=== PATIENT | male | born 1945 | race Caucasian/White ===

== ENCOUNTER 2022-01-16 12:36 | Inpatient (IN) | payer OTHER, SELFPAY ==
[2022-01-16] VITALS (29 sets, daily range): BP systolic 130–232; BP diastolic 89–143; PULSE 82–103; RESP 18–29; TEMP 36.2–36.3; O2SAT 93–98; BMI 38.0
--- NOTE | 2022-01-16 13:14 | DI.RAD.S_ITS ---
PROCEDURE: XR CHEST 2V INDICATIONS: shortness of breath TECHNIQUE: 2 views of the chest were acquired. COMPARISON: [facility], , CHEST 1 VIEW, 08/09/2016, 15:31. FINDINGS: Surgical changes and devices: Median sternotomy wires are present and appear intact. Lungs and pleura: Diffuse interstitial prominence. Small bilateral pleural effusions. Suggestion of mild pulmonary vascular congestion. No focal consolidation. No pneumothorax. Mediastinum: Mediastinal contours are stable. Heart size is enlarged. Bones and chest wall: No suspicious bony abnormalities. Soft tissues appear unremarkable. IMPRESSION: Cardiomegaly with findings compatible with pulmonary edema/CHF. A concurrent infectious/inflammatory process not excluded if clinically appropriate. No focal consolidation seen. Dictated by: Madi Palumbo M.D. on 01/16/2022 at 13:58 Approved by: Madi Palumbo M.D. on 01/16/2022 at 13:59
[2022-01-16 13:28] LABS: Add Manual Diff / Slide Review NO; Basophils Absolute Auto 100 /uL (0-100); Eosinophils Absolute Auto 100 /uL (0-450); Eosinophils Percent Auto 1.2 % (2-4); Hematocrit 38.4 % (41-53); Hemoglobin 12.7 g/dL (13.5-17.5); Lymphocytes Absolute Auto 700 /uL (1100-4500); Lymphocytes Percent Auto 7.9 % (25-40); Mean Corpuscular HGB Conc 33.2 % (30-36); Mean Corpuscular Hemoglobin 26.3 PG (26-34); Mean Corpuscular Volume 79.1 fL (80-100); Monocytes Absolute Auto 700 /uL (0-900); Monocytes Percent Auto 8.8 % (3-14); Neutrophils Absolute Auto 6700 /uL (1500-7000); Neutrophils Percent Auto 81.1 % (50-75); Platelet Count 187 X10^3/uL (150-400); Red Blood Cell Count 4.85 X10^6/uL (4.5-5.9); White Blood Cell Count 8.3 X10^3/uL (4.5-11.0)
[2022-01-16 13:30] LABS: COVID19 -Nasal RAPID Negative (Negative)
[2022-01-16 13:36] LABS: Lactate (Lactic Acid) 1.6 mmol/L (0.7-2.1)
[2022-01-16 13:38] LABS: Alanine Aminotransferase 17 IU/L (<50); Albumin 4.4 g/dL (3.5-5.0); Alkaline Phosphatase 141 U/L (38-126); Aspartate Aminotransferase 26 IU/L (17-59); BUN Creatinine Ratio 19.8 (6-22); Bilirubin Total 1.2 mg/dL (0.2-1.3); Blood Urea Nitrogen 40 mg/dL (9-20); Calcium 9.8 mg/dL (8.4-10.2); Carbon Dioxide 23 mmol/L (22-32); Chloride 98 mmol/L (98-107); Estimated Glomerular Filt Rate 33 mL/min (>60); Globulin 4.2 g/dL (1.7-4.1); Glucose 130 mg/dL (80-110); HEMOLYSIS < 15 (0-50); Sodium 132 mmol/L (137-145); Total Protein 8.6 g/dL (6.3-8.2)
[2022-01-16 13:39] LABS: Potassium 5.6 mmol/L (3.4-5.1)
--- NOTE | 2022-01-16 13:44 | ED.SOB ---
HPI - SOB/Dyspnea General Chief Complaint: Shortness of Breath/Dyspnea Stated Complaint: Asthma flare up, SOB Time Seen by Provider: 01/16/22 13:43 Source: patient and family Mode of arrival: Wheelchair Limitations: no limitations History of Present Illness HPI Narrative: This is a 76-year-old male with history of aortic valve replacement and 2 vessel CABG 2014, asthma, chronic kidney disease, hypothyroidism. Patient states he presents with increasing shortness of breath he is had 2 years of dyspnea but states it has been worsening progressively over the last 3 months the last 3 weeks and significantly over the last 3 days, progressive swelling of his lower extremities. Patient has had multiple visits with primary care and at the local walk-in clinic they felt it was likely CHF exacerbation. Patient was on Lasix 40 mg daily he states this made the swelling in his legs worse and he stopped taking it 3 days ago and the swelling got better. Patient denies any chest pain or pressure. He states his dyspnea is exertional if he is at rest he does not have any issues. He does admit to some upper respiratory congestion which is daily and not new or changed. He does take a daily Claritin and use Nasacort. Patient denies nausea or vomiting, no diaphoresis, no changes to bowel movements, no black or bloody stools. No dysuria urgency or frequency. Patient noted that he had minimal increase in output with Lasix or delayed by several hours. Patient states he has many medication allergies and these were reviewed, quit smoking tobacco 50 years ago, last alcoholic drink was 30 years ago denies any illicit. Dr. Bonner is his PCP and Dr. Hernandez is his international relations professor. Related Data Home Medications Medication Instructions Recorded Confirmed albuterol sulfate 90 mcg/actuation 2 puff INH ##0 08/09/16 08/30/21 aerosol inhaler (Ventolin HFA) fluticasone furoate 100 1 puff INH ##0 08/09/16 08/30/21 mcg-vilanterol 25 mcg/dose inhalation powder (Breo Ellipta) aspirin 81 mg tablet,delayed 81 mg PO QDAY ##0 07/17/17 08/30/21 release furosemide 40 mg tablet 40 mg Q DAY PRN ##0 07/17/17 08/30/21 levothyroxine 100 mcg tablet 100 mcg PO QAM ##0 07/17/17 08/30/21 amlodipine 10 mg tablet 10 mg PO DAILY 08/30/21 08/30/21 lisinopril 40 mg tablet 40 mg PO DAILY 08/30/21 08/30/21 omeprazole 20 mg capsule,delayed 20 mg PO DAILY 08/30/21 08/30/21 release tamsulosin 0.4 mg capsule 0.4 mg PO DAILY 08/30/21 08/30/21 Previous Rx's Medication Instructions Recorded prednisone 50 mg tablet 50 mg [facility] tabs 07/17/17 lidocaine 4 % topical patch 1 patch topical BID PRN pain #10 ea 01/05/22 (AsperFlex (lidocaine)) loratadine 5 mg-pseudoephedrine ER 1 tab PO ONCE PRN nasal congestion 01/08/22 120 mg tablet,extended #14 tabs release,12hr (Claritin-D 12 Hour) prednisone 20 mg tablet 40 mg PO DAILY #10 tabs 01/08/22 Allergies Allergy/AdvReac Type Severity Reaction Status Date / Time lisinopril [LISINOPRIL] Allergy Unknown Swelling Verified 01/16/22 13:12 of Lip/Tongue/Throat simvastatin [SIMVASTATIN] Allergy Unknown Verified 01/16/22 13:12 guanfacine Allergy Verified 01/16/22 13:12 valsartan [VALSARTAN] AdvReac Intermediate SOB, ST, Verified 01/16/22 13:12 dry cough furosemide [From LASIX] AdvReac Mild LEG CRAMPS Verified 01/16/22 13:12 diltiazem [From CARDIZEM] AdvReac Unknown Verified 01/16/22 13:12 hydralazine [HYDRALAZINE] AdvReac Unknown leg Verified 01/16/22 13:12 cramps, extreme gas carvedilol AdvReac Verified 01/16/22 13:12 losartan AdvReac Verified 01/16/22 13:12 spironolactone AdvReac Verified 01/16/22 13:12 Review of Systems Review of Systems ROS Unobtainable: All systems reviewed & are unremarkable except as noted in HPI and below Patient History Social History Smoking Status: Former smoker Smoking Status: Former smoker Exam Narrative Exam Narrative: GENERAL: Alert and oriented x three, elderly male in moderate distress. HEENT: Head normocephalic, atraumatic, EOMI, pupils reactive, face symmetric, moist mucous membranes NECK: Supple, full range of motion CARDIOVASCULAR: Regular rate and rhythm without murmurs, rubs or gallops. Positive for bilateral lower extremity swelling. RESPIRATORY: Breath sounds equal bilaterally, no wheezes rales or rhonchi. Mild tachypnea speaks in full sentences. ABDOMEN: Soft, nontender. Normoactive bowel sounds all 4 quadrants. No guarding or rebound, rigidity, no mass : No CVA tenderness EXTREMITIES: Normal range of motion, pitting edema bilateral lower extremities up through the thighs. Neurovascularly intact NEUROLOGICAL: Cranial nerves II through XII grossly intact. Moving all extremities SKIN: Warm, dry, no petechiae, no rashes or lesions. Initial Vital Signs Initial Vital Signs: Vital Signs Temperature 97.1 F L 01/16/22 12:57 Pulse Rate 96 H 01/16/22 12:57 Respiratory Rate 24 01/16/22 12:57 Blood Pressure 175/95 H 01/16/22 12:57 Pulse Oximetry 97 01/16/22 12:57 Oxygen Delivery Method 01/16/22 12:57 Course Orders Ordered: ED Orders 01/16/22 12:55 COVID19 -Nasal RAPID/Pre-Proc Stat 01/16/22 13:14 XR chest 2V Stat Measure peak expiratory flow ONCE RT Consult Eval and Treat Now 01/16/22 13:17 Complete Blood Count AUTO DIFF Stat Comprehensive Metabolic Panel Stat Lactate (Lactic Acid) Stat NT-proBNP (BNP-Adult 18+) Stat Troponin & CK Cardiac Panel Stat 01/16/22 16:42 EKG-12 Lead Stat 01/16/22 16:49 Trop I [Troponin I] Stat Discontinued Medications Furosemide (Furosemide 100 Mg/10 Ml Vial) 80 mg IV NOW ONE Stop: 01/16/22 18:40 Last Admin: 01/16/22 18:52 Dose: 80 mg Documented By: RL Nitroglycerin (Nitroglycerin 0.4 Mg Sl Tab) 0.4 mg SL NOW ONE Stop: 01/16/22 17:25 Last Admin: 01/16/22 17:38 Dose: 0.4 mg Documented By: RL Nitroglycerin (Nitroglycerin Oint 1 Inch/Gm Oint...G.) 1 inch TOP NOW ONE Stop: 01/16/22 18:40 Last Admin: 01/16/22 18:52 Dose: 1 inch Documented By: RL Consultations Consultation #1: Dr. Cisneros, cardiology [place] (covering for Dr. Hernandez): Recommends observation, echo, diuresis and low-dose beta-ayush. Patient had an echo in 2020 with an EF of 50% but global hypokinesis. If patient's troponins trend out without issue can follow up outpatient with Cardiology for further outpatient ischemic workup. Discussed that patient very reluctant to continue Lasix and has multiple medication allergies. He suggest Toprol daily at this time patient has allergy to carvedilol but does not appear to have an allergy to metoprolol. Time: 18:12 Consultation #2: Dr. Álvarez, hospitalist. Kindly accepts for CHF exacerbation patient is not hypoxic but has hypertension quite significantly had minimal improvement with nitro sublingual, patient has lab, clinical evaluation and imaging consistent with CHF. Patient is quite resistant to the idea that this is a CHF flare and has multiple adverse events he describes is medication allergies that make medication management little bit difficult. We did discuss recommendations and patient's prior outpatient workup with Cardiology. Time: 18:42 Vital Signs Vital signs: Vital Signs - 8 hr 01/16/22 12:57 01/16/22 12:59 01/16/22 13:00 Temperature 97.1 F L Pulse Rate 96 H 83 Respiratory Rate 24 28 H Blood Pressure 175/95 H 175/95 H Pulse Oximetry 97 98 Oxygen Delivery Method Room Air 01/16/22 13:00 01/16/22 13:30 01/16/22 13:31 Temperature Pulse Rate 103 H 98 H Respiratory Rate 27 H 27 H Blood Pressure 130/90 Pulse Oximetry 97 95 Oxygen Delivery Method 01/16/22 13:31 01/16/22 14:00 01/16/22 14:30 Temperature Pulse Rate 99 H 100 H 100 H Respiratory Rate 21 22 21 Blood Pressure Pulse Oximetry 96 98 95 Oxygen Delivery Method 01/16/22 15:00 01/16/22 15:26 01/16/22 15:26 Temperature Pulse Rate 99 H 89 Respiratory Rate 18 23 Blood Pressure 187/111 H Pulse Oximetry 96 97 Oxygen Delivery Method 01/16/22 17:38 01/16/22 15:30 01/16/22 15:31 Temperature Pulse Rate 99 H 96 H Respiratory Rate 20 Blood Pressure 218/111 H 171/93 H Pulse Oximetry 96 Oxygen Delivery Method 01/16/22 15:31 01/16/22 16:00 01/16/22 16:00 Temperature Pulse Rate 96 H 88 Respiratory Rate 20 20 Blood Pressure 172/102 H Pulse Oximetry 97 97 Oxygen Delivery Method 01/16/22 16:30 01/16/22 16:30 01/16/22 17:00 Temperature Pulse Rate 95 H Respiratory Rate 20 Blood Pressure 180/143 H 208/100 H Pulse Oximetry 97 Oxygen Delivery Method 01/16/22 17:00 01/16/22 17:38 01/16/22 17:39 Temperature Pulse Rate 84 92 H Respiratory Rate 23 19 Blood Pressure 218/111 H Pulse Oximetry 96 96 Oxygen Delivery Method 01/16/22 17:39 01/16/22 17:50 01/16/22 17:50 Temperature Pulse Rate 100 H 83 Respiratory Rate 18 20 Blood Pressure 195/104 H Pulse Oximetry 96 93 Oxygen Delivery Method 01/16/22 18:00 01/16/22 18:00 01/16/22 18:10 Temperature Pulse Rate 97 H Respiratory Rate 19 Blood Pressure 213/100 H 203/131 H Pulse Oximetry 94 Oxygen Delivery Method 01/16/22 18:10 Temperature Pulse Rate 90 Respiratory Rate 18 Blood Pressure Pulse Oximetry 94 Oxygen Delivery Method MDM - SOB/Dyspnea Lab Data Result diagrams: 01/16/22 13:17 01/16/22 13:17 Labs: Lab Results 01/16/22 01/16/22 01/16/22 Range/Units 12:55 13:17 13:17 WBC 8.3 (4.5-11.0) X10^3/uL RBC 4.85 (4.5-5.9) X10^6/uL Hgb 12.7 L (13.5-17.5) g/dL Hct 38.4 L (41-53) % MCV 79.1 L (80-100) fL MCH 26.3 (26-34) PG MCHC 33.2 (30-36) % RDW 16.0 H (11.6-14.8) % Plt Count 187 (150-400) X10^3/uL Neut % (Auto) 81.1 H (50-75) % Lymph % (Auto) 7.9 L (25-40) % [place] % (Auto) 8.8 (3-14) % Eos % (Auto) 1.2 L (2-4) % Baso % (Auto) 1.0 (0-2) % Neut # (Auto) 6700 (1568-8429) /uL Lymph # (Auto) 700 L (0542-1069) /uL [place] # (Auto) 700 (0-900) /uL Eos # (Auto) 100 (0-450) /uL Baso # (Auto) 100 (0-100) /uL Sodium 132 L (137-145) mmol/L Potassium 5.6 H (3.4-5.1) mmol/L Chloride 98 (98-107) mmol/L Carbon Dioxide 23 (22-32) mmol/L BUN 40 H (9-20) mg/dL Creatinine 2.02 H (0.66-1.25) mg/dL Estimated GFR 33 L (>60) mL/min BUN/Creatinine Ratio 19.8 (6-22) Glucose 130 H (80-110) mg/dL Lactate (0.7-2.1) mmol/L Calcium 9.8 (8.4-10.2) mg/dL Total Bilirubin 1.2 (0.2-1.3) mg/dL AST 26 (17-59) IU/L ALT 17 (<50) IU/L Alkaline Phosphatase 141 H (38-126) U/L Total Creatine Kinase (55-170) U/L CK-MB (CK-2) CK-MB (CK-2) Rel Index Troponin I (0.01-0.034) ng/mL NT-Pro-B Natriuret Pep (<450) pg/mL Total Protein 8.6 H (6.3-8.2) g/dL Albumin 4.4 (3.5-5.0) g/dL Globulin 4.2 H (1.7-4.1) g/dL Albumin/Globulin Ratio 1.0 (1.0-2.8) SARS-CoV-2 (PCR) Negative (Negative) 01/16/22 01/16/22 01/16/22 Range/Units 13:17 13:17 13:17 WBC (4.5-11.0) X10^3/uL RBC (4.5-5.9) X10^6/uL Hgb (13.5-17.5) g/dL Hct (41-53) % MCV (80-100) fL MCH (26-34) PG MCHC (30-36) % RDW (11.6-14.8) % Plt Count (150-400) X10^3/uL Neut % (Auto) (50-75) % Lymph % (Auto) (25-40) % [place] % (Auto) (3-14) % Eos % (Auto) (2-4) % Baso % (Auto) (0-2) % Neut # (Auto) (4029-9872) /uL Lymph # (Auto) (3819-2844) /uL [place] # (Auto) (0-900) /uL Eos # (Auto) (0-450) /uL Baso # (Auto) (0-100) /uL Sodium (137-145) mmol/L Potassium (3.4-5.1) mmol/L Chloride (98-107) mmol/L Carbon Dioxide (22-32) mmol/L BUN (9-20) mg/dL Creatinine (0.66-1.25) mg/dL Estimated GFR (>60) mL/min BUN/Creatinine Ratio (6-22) Glucose (80-110) mg/dL Lactate 1.6 (0.7-2.1) mmol/L Calcium (8.4-10.2) mg/dL Total Bilirubin (0.2-1.3) mg/dL AST (17-59) IU/L ALT (<50) IU/L Alkaline Phosphatase (38-126) U/L Total Creatine Kinase 72 (55-170) U/L CK-MB (CK-2) TNP CK-MB (CK-2) Rel Index TNP Troponin I 0.064 H (0.01-0.034) ng/mL NT-Pro-B Natriuret Pep 9310 H (<450) pg/mL Total Protein (6.3-8.2) g/dL Albumin (3.5-5.0) g/dL Globulin (1.7-4.1) g/dL Albumin/Globulin Ratio (1.0-2.8) SARS-CoV-2 (PCR) (Negative) 01/16/22 Range/Units 16:49 WBC (4.5-11.0) X10^3/uL RBC (4.5-5.9) X10^6/uL Hgb (13.5-17.5) g/dL Hct (41-53) % MCV (80-100) fL MCH (26-34) PG MCHC (30-36) % RDW (11.6-14.8) % Plt Count (150-400) X10^3/uL Neut % (Auto) (50-75) % Lymph % (Auto) (25-40) % [place] % (Auto) (3-14) % Eos % (Auto) (2-4) % Baso % (Auto) (0-2) % Neut # (Auto) (9007-5936) /uL Lymph # (Auto) (0036-0427) /uL [place] # (Auto) (0-900) /uL Eos # (Auto) (0-450) /uL Baso # (Auto) (0-100) /uL Sodium (137-145) mmol/L Potassium (3.4-5.1) mmol/L Chloride (98-107) mmol/L Carbon Dioxide (22-32) mmol/L BUN (9-20) mg/dL Creatinine (0.66-1.25) mg/dL Estimated GFR (>60) mL/min BUN/Creatinine Ratio (6-22) Glucose (80-110) mg/dL Lactate (0.7-2.1) mmol/L Calcium (8.4-10.2) mg/dL Total Bilirubin (0.2-1.3) mg/dL AST (17-59) IU/L ALT (<50) IU/L Alkaline Phosphatase (38-126) U/L Total Creatine Kinase (55-170) U/L CK-MB (CK-2) CK-MB (CK-2) Rel Index Troponin I 0.066 H (0.01-0.034) ng/mL NT-Pro-B Natriuret Pep (<450) pg/mL Total Protein (6.3-8.2) g/dL Albumin (3.5-5.0) g/dL Globulin (1.7-4.1) g/dL Albumin/Globulin Ratio (1.0-2.8) SARS-CoV-2 (PCR) (Negative) Imaging Data Chest x-ray: Radiologist's Impression: [address] [address] XRay Report Signed Patient: Ashok Odell MR#: [id number] : 1945 Acct:[id number] Age/Sex: 76 / M Date of Service: 01/16/22 Loc: ED Accession Number: [id number] ?? Procedure: XR chest 2V Ordering Provider: Lori Loya D.O. PROCEDURE:? XR CHEST 2V ? INDICATIONS:? shortness of breath ? TECHNIQUE:? 2 views of the chest were acquired.? ? COMPARISON:? [facility], , CHEST 1 VIEW, 08/09/2016, 15:31. ? FINDINGS:? ? Surgical changes and devices: ? Median sternotomy wires are present and appear intact. ? Lungs and pleura:? Diffuse interstitial prominence.? Small bilateral pleural effusions.? Suggestion of mild pulmonary vascular congestion.? No focal consolidation.? No pneumothorax. ? Mediastinum:? Mediastinal contours are stable.? Heart size is enlarged.? ? Bones and chest wall:? No suspicious bony abnormalities.? Soft tissues appear unremarkable.? ? IMPRESSION:? Cardiomegaly with findings compatible with pulmonary edema/CHF.? A concurrent infectious/inflammatory process not excluded if clinically appropriate.? No focal consolidation seen. ? ? Dictated by: Madi Palumbo M.D. on 01/16/2022 at 13:58 ? ? Approved by: Madi Palumbo M.D. on 01/16/2022 at 13:59?? ECG Data Attestation: I personally reviewed and interpreted this ECG as follows: Interpretation: Undetermined rhythm rate 84 QRS of 190 QTC of 510. Patient appears to have either AFib or sinus rhythm with a right bundle and left anterior fascicular block with frequent PVCs. EKG 2, rate of 83 QRS of 184, QTC of 512. Patient has frequent PVCs, right bundle-branch block, left anterior fascicular. No clear ST changes appreciated although possible ST changes difficult to ascertain. MDM Narrative Medical decision making narrative: This is a 76-year-old male who presents with complaint of increasing exertional dyspnea, swelling of his lower extremities in the setting history of asthma, no coronary artery disease with 2 vessel CABG 2 years ago and aortic valve. Patient's EF in 2020 was 50% with global hypokinesis and patient has multiple and frequent PVCs often in a bigeminal pattern on his prior EKGs according to Dr. Cisneros who is with Cardiology in [place]. Patient has been on Lasix recently he states it made his swelling worsening got better when he stopped it. He does have chronic kidney disease describes his GFR at 38-40 and he is 33 today. Potassium is slightly elevated, troponin is indeterminate but fairly stable, chest x-ray shows changes consistent with pulmonary edema with elevated BNP. Patient has multiple medication allergies complicating his care and treatment and is quite resistant to the idea that diuretics might be helpful for his care. Discussed with cardiology who recommends observation, echo to evaluate cardiac function and squeeze, they do recommend a low-dose beta ayush such as Toprol and diuresis. Discussed with hospitalist who accepts for observation, discussed patient has quite a bit resistant to multiple medication options including beta-blockers. For blood pressure control will try nitro paste at this time, Lasix and will evaluate medication from there. Discharge Plan Departure Patient Disposition: Admitted as Observation Clinical Impression: Acute exacerbation of congestive heart failure, CKD (chronic kidney disease), Hypertension Admit Date/Time: 01/16/22 18:44 Admit Provider: Trever Álvarez
[2022-01-16 13:58] LABS: NT-proBNP (BNP-Adult 18+) 9310 pg/mL (<450)
[2022-01-16 14:00] LABS: Creatine Kinase 72 U/L (55-170)
[2022-01-16 14:13] LABS: Troponin I 0.064 ng/mL (0.01-0.034)
[2022-01-16 17:20] LABS: Troponin I 0.066 ng/mL (0.01-0.034)
[2022-01-16] MEDS: NITROGLYCERIN 0.4 MG SL TAB SL (17:38)
[2022-01-16] MEDS: FUROSEMIDE 100 MG/10 ML VIAL 80 MG IV (18:52)
[2022-01-16] MEDS: NITROGLYCERIN OINT 1 INCH/GM OINT...G. TOP (18:52)
--- NOTE | 2022-01-16 20:18 | P.HP_ITS ---
History of Present Illness History of Present Illness Date Patient Seen: 01/16/22 Time Patient Seen: 08:00 Chief complaint: Asthma flare up, SOB Narrative: Mr. Odell is a 76M with PMH CAD s/p OH, s/p bypass, s/p AVR, CHF, HTN, HL, asthma, hypothyroid, BPH who presents with shortness of breath. He states for at least 3 months he has had shortness of breath and it is progressively worsening. He has a cough. No fevers/chills. No chest pain. He has noted worsening leg and belly swelling. He has noted exertional dyspnea after just a few steps and short of breath when lying flat. He does not reliably take lasix, beta-ayush, or his blood pressure medications. He thinks lasix causes were lower leg swelling. He has had TONEY/ARB stopped in the past due to question of precipitating cough. In the ED workup was done, vitals notable for afebrile, heart rate ni the 90s, respiratory rate in 20s, bp 170s/90s. sats 97% on room air. Labs notable for WBC 8.3, hgb 12.7, plts 187. Na 132, K 5.6, BUN 40, creatinine 2.02. Trop 0.064- >0.066, BNP 9310. Chest xray showed cardiomegaly and pulmonary edema. EKG showed right bundle, LAFB, frequent PVCs, question of sinus rhythm. He was given lasix and nitro patch and admitted for further treatment. Family history: Mother with CAD Social history: stopped smoking decades ago, denies EtOH Patient History Family & Social History Safety & Behavioral: Feels Safe in Current Yes Environment Been Physically Hurt or No Threatened By a Person Tobacco & Substance use: Smoking Status Former smoker Meds Home Medications and Allergies Home Medications Medication Instructions Recorded Confirmed Type albuterol sulfate 90 mcg/actuation 2 puff INH ##0 08/09/16 08/30/21 History aerosol inhaler (Ventolin HFA) fluticasone furoate 100 1 puff INH ##0 08/09/16 08/30/21 History mcg-vilanterol 25 mcg/dose inhalation powder (Breo Ellipta) aspirin 81 mg tablet,delayed 81 mg PO QDAY ##0 07/17/17 08/30/21 History release furosemide 40 mg tablet 40 mg Q DAY PRN ##0 07/17/17 08/30/21 History levothyroxine 100 mcg tablet 100 mcg PO QAM ##0 07/17/17 08/30/21 History prednisone 50 mg tablet 50 mg PO [facility]CC #7 tabs 07/17/17 08/30/21 Rx amlodipine 10 mg tablet 10 mg PO DAILY 08/30/21 08/30/21 History lisinopril 40 mg tablet 40 mg PO DAILY 08/30/21 08/30/21 History omeprazole 20 mg capsule,delayed 20 mg PO DAILY 08/30/21 08/30/21 History release tamsulosin 0.4 mg capsule 0.4 mg PO DAILY 08/30/21 08/30/21 History lidocaine 4 % topical patch 1 patch topical BID PRN pain #10 ea 01/05/22 01/05/22 Rx (AsperFlex (lidocaine)) loratadine 5 mg-pseudoephedrine ER 1 tab PO ONCE PRN nasal congestion 01/08/22 01/08/22 Rx 120 mg tablet,extended #14 tabs release,12hr (Claritin-D 12 Hour) prednisone 20 mg tablet 40 mg PO DAILY #10 tabs 01/08/22 01/08/22 Rx Allergies Allergy/AdvReac Type Severity Reaction Status Date / Time lisinopril [LISINOPRIL] Allergy Unknown Swelling Verified 01/16/22 13:12 of Lip/Tongue/Throat simvastatin [SIMVASTATIN] Allergy Unknown Verified 01/16/22 13:12 guanfacine Allergy Verified 01/16/22 13:12 valsartan [VALSARTAN] AdvReac Intermediate SOB, ST, Verified 01/16/22 13:12 dry cough furosemide [From LASIX] AdvReac Mild LEG CRAMPS Verified 01/16/22 13:12 diltiazem [From CARDIZEM] AdvReac Unknown Verified 01/16/22 13:12 hydralazine [HYDRALAZINE] AdvReac Unknown leg Verified 01/16/22 13:12 cramps, extreme gas carvedilol AdvReac Verified 01/16/22 13:12 losartan AdvReac Verified 01/16/22 13:12 spironolactone AdvReac Verified 01/16/22 13:12 Review of Systems Review of Systems Narrative: 14 systems reviewed and negative aside from what is noted in HPI Exam Vital Signs (past 8 hours): - 01/16/22 12:57 01/16/22 12:59 01/16/22 13:00 Temperature 97.1 F L Pulse Rate 96 H 83 Respiratory Rate 24 28 H Blood Pressure 175/95 H 175/95 H Pulse Oximetry 97 98 Oxygen Delivery Method Room Air 01/16/22 13:00 01/16/22 13:30 01/16/22 13:31 Temperature Pulse Rate 103 H 98 H Respiratory Rate 27 H 27 H Blood Pressure 130/90 Pulse Oximetry 97 95 Oxygen Delivery Method 01/16/22 13:31 01/16/22 14:00 01/16/22 14:30 Temperature Pulse Rate 99 H 100 H 100 H Respiratory Rate 21 22 21 Blood Pressure Pulse Oximetry 96 98 95 Oxygen Delivery Method 01/16/22 15:00 01/16/22 15:26 01/16/22 15:26 Temperature Pulse Rate 99 H 89 Respiratory Rate 18 23 Blood Pressure 187/111 H Pulse Oximetry 96 97 Oxygen Delivery Method 01/16/22 17:38 01/16/22 15:30 01/16/22 15:31 Temperature Pulse Rate 99 H 96 H Respiratory Rate 20 Blood Pressure 218/111 H 171/93 H Pulse Oximetry 96 Oxygen Delivery Method 01/16/22 15:31 01/16/22 16:00 01/16/22 16:00 Temperature Pulse Rate 96 H 88 Respiratory Rate 20 20 Blood Pressure 172/102 H Pulse Oximetry 97 97 Oxygen Delivery Method 01/16/22 16:30 01/16/22 16:30 01/16/22 17:00 Temperature Pulse Rate 95 H Respiratory Rate 20 Blood Pressure 180/143 H 208/100 H Pulse Oximetry 97 Oxygen Delivery Method 01/16/22 17:00 01/16/22 17:38 01/16/22 17:39 Temperature Pulse Rate 84 92 H Respiratory Rate 23 19 Blood Pressure 218/111 H Pulse Oximetry 96 96 Oxygen Delivery Method 01/16/22 17:39 01/16/22 17:50 01/16/22 17:50 Temperature Pulse Rate 100 H 83 Respiratory Rate 18 20 Blood Pressure 195/104 H Pulse Oximetry 96 93 Oxygen Delivery Method 01/16/22 18:00 01/16/22 18:00 01/16/22 18:10 Temperature Pulse Rate 97 H Respiratory Rate 19 Blood Pressure 213/100 H 203/131 H Pulse Oximetry 94 Oxygen Delivery Method 01/16/22 18:10 01/16/22 18:52 01/16/22 18:20 Temperature Pulse Rate 90 83 Respiratory Rate 18 Blood Pressure 202/99 H 221/116 H Pulse Oximetry 94 Oxygen Delivery Method 01/16/22 18:20 01/16/22 18:30 01/16/22 18:30 Temperature Pulse Rate 99 H 96 H Respiratory Rate 18 21 Blood Pressure 210/100 H Pulse Oximetry 94 94 Oxygen Delivery Method 01/16/22 18:40 01/16/22 18:40 01/16/22 18:51 Temperature Pulse Rate 88 Respiratory Rate 20 Blood Pressure 232/104 H 202/99 H Pulse Oximetry 97 Oxygen Delivery Method 01/16/22 18:51 01/16/22 19:00 01/16/22 19:01 Temperature Pulse Rate 99 H 90 83 Respiratory Rate 25 H 20 19 Blood Pressure Pulse Oximetry 94 97 94 Oxygen Delivery Method 01/16/22 19:01 01/16/22 19:11 01/16/22 19:11 Temperature Pulse Rate 89 Respiratory Rate 29 H Blood Pressure 228/100 H 195/89 H Pulse Oximetry 95 Oxygen Delivery Method 01/16/22 19:41 Temperature Pulse Rate 82 Respiratory Rate 18 Blood Pressure Pulse Oximetry 98 Oxygen Delivery Method Oxygen Delivery Method Room Air Narrative Exam Narrative: GEN: mild respiratory distress HEENT: moist mucous membranes, PERRL NECK: trachea midline, JVD+ PULM: crackles bilaterally, no wheezes CV: irregular, no murmurs ABD: soft, nontender, distended, no organomegaly EXT: 2+ pitting edema NEURO: awake, alert, oriented, no focal deficits Objective Labs Result Diagrams: 01/16/22 13:17 01/16/22 13:17 Labs: Laboratory Results - last 24 hr 01/16/22 01/16/22 01/16/22 12:55 13:17 13:17 WBC 8.3 RBC 4.85 Hgb 12.7 L Hct 38.4 L MCV 79.1 L MCH 26.3 MCHC 33.2 RDW 16.0 H Plt Count 187 Neut % (Auto) 81.1 H Lymph % (Auto) 7.9 L [place] % (Auto) 8.8 Eos % (Auto) 1.2 L Baso % (Auto) 1.0 Neut # (Auto) 6700 Lymph # (Auto) 700 L [place] # (Auto) 700 Eos # (Auto) 100 Baso # (Auto) 100 Sodium 132 L Potassium 5.6 H Chloride 98 Carbon Dioxide 23 BUN 40 H Creatinine 2.02 H Estimated GFR 33 L BUN/Creatinine Ratio 19.8 Glucose 130 H Lactate Calcium 9.8 Total Bilirubin 1.2 AST 26 ALT 17 Alkaline Phosphatase 141 H Total Creatine Kinase CK-MB (CK-2) CK-MB (CK-2) Rel Index Troponin I NT-Pro-B Natriuret Pep Total Protein 8.6 H Albumin 4.4 Globulin 4.2 H Albumin/Globulin Ratio 1.0 SARS-CoV-2 (PCR) Negative 01/16/22 01/16/22 01/16/22 13:17 13:17 13:17 WBC RBC Hgb Hct MCV MCH MCHC RDW Plt Count Neut % (Auto) Lymph % (Auto) [place] % (Auto) Eos % (Auto) Baso % (Auto) Neut # (Auto) Lymph # (Auto) [place] # (Auto) Eos # (Auto) Baso # (Auto) Sodium Potassium Chloride Carbon Dioxide BUN Creatinine Estimated GFR BUN/Creatinine Ratio Glucose Lactate 1.6 Calcium Total Bilirubin AST ALT Alkaline Phosphatase Total Creatine Kinase 72 CK-MB (CK-2) TNP CK-MB (CK-2) Rel Index TNP Troponin I 0.064 H NT-Pro-B Natriuret Pep 9310 H Total Protein Albumin Globulin Albumin/Globulin Ratio SARS-CoV-2 (PCR) 01/16/22 16:49 WBC RBC Hgb Hct MCV MCH MCHC RDW Plt Count Neut % (Auto) Lymph % (Auto) [place] % (Auto) Eos % (Auto) Baso % (Auto) Neut # (Auto) Lymph # (Auto) [place] # (Auto) Eos # (Auto) Baso # (Auto) Sodium Potassium Chloride Carbon Dioxide BUN Creatinine Estimated GFR BUN/Creatinine Ratio Glucose Lactate Calcium Total Bilirubin AST ALT Alkaline Phosphatase Total Creatine Kinase CK-MB (CK-2) CK-MB (CK-2) Rel Index Troponin I 0.066 H NT-Pro-B Natriuret Pep Total Protein Albumin Globulin Albumin/Globulin Ratio SARS-CoV-2 (PCR) Assessment & Plan Assessment & Plan narrative: Mr. Odell is a 76M with PMH CAD, CHF who presents with acute CHF exacerbation and AUTUMN. 1. Acute respiratory distress from acute CHF exacerbation -previous notes EF was 50% last year -likely component of nonadherence due to not taking meds -consult dietary for CHF diet -continue lasix IV BID -consider starting metoprolol tomorrow after results of echo if CHF improving -ECHO to eval valve and EF -low salt diet -fluid restriction -nitro patch placed due to significant hypertension on admit, if worsens will order nitro gtt 2. AUTUMN with hyperkalemia -presumed secondary to CHF exacerbation -k on admit 5.6 -creatinine on admit 2.02, from baseline 1-1.3 -diurese as above -check creatinine daily -if not improving with diuresis will need renal imaging, fena -hold toney/arb -repeat K stat, if rising will order dextrose, insulin, calcium 3. CAD s/p CABG, s/p avr -continue aspirin -no statin due to muscle injury previously -trend troponins 4. Elevated troponin -suspect secondary to demand from CHF exacerbation -trop 0.064->0.066 -no chest pain -repeat another troponin to rule out ACS 5. Hypertension -started nitro patch -continue amlodipine 6. BPH -tamsulosin 7. Hypothyroid -continue synthroid CODE: Full Proxy: Anahi Odell, daughter I have utilized all available resources to reconcile the patient's home medications. Time Spent With Patient Critical Care time: I spent a total of [] minutes of critical care time on this patient's care today; this time is exclusive of procedural time. Quality MIPS - Admit I confirm the patient?s Advance Care Plan is present, Code status is documented, Surrogate decision maker is in patient?s record [If Yes, STOP here]: Yes
--- NOTE | 2022-01-16 20:21 | DI.ECHO.S_ITS ---
[facility]---------+ [facility] +---------+ : : [address] : : : : [id number] : : : : Phone: [phone] Echocardiogram Report + + :Name: KATERINE ELAINEAINSLEYCECY PRINCE Study Date: 01/17/2022 Height: 68 in : :[facility] ReadingLocation: Weight: 253 lb : : Gender: Male BSA: 2.3 m2 : :: 1945 Age: 76 yrs BP: 164/99 mmHg: :Reason For Study: Congestive Heart Failure : :Ordering Physician: XOCHITL, : :RILEY Performed By: Trino Gutierrez : :Referring: RILEY LEUNG : + + Interpretation Summary IVCD suggestive of BBB or possible paced underlying rhythm. Clinical correlation recommended. The left ventricle is borderline dilated. There is moderate asymmetric left ventricular hypertrophy. Left ventricular systolic function is moderately reduced. The ejection fraction is estimated to be 35-40%. There is moderate global hypokinesis of the left ventricle. The interventricular septum is flattened, consistent with a right ventricular pressure/volume condition. Diastolic parameters suggest a restrictive filling pattern consistent with probable significantly elevated filling pressures. The right ventricle is severely dilated. Right ventricular systolic function is moderately reduced. Both atria are severely dilated. There is moderate mitral regurgitation. There is a bioprosthetic aortic valve. The prosthetic aortic valve is well-seated. There is severe tricuspid regurgitation. The right ventricular systolic pressure is estimated to be at least 73 mmHg based on an estimated right atrial pressure of 15 mm Hg. Compared to 02/14/2015, decrease in LVEF and systolic function, elevated RVSP, aortic valve replacement. Procedure: A two-dimensional transthoracic echocardiogram with color flow and Doppler was performed. The study quality was technically adequate. Comparison is made with the echocardiogram of 02/14/2015. IVCD suggestive of BBB or possible paced underlying rhythm. Clinical correlation recommended. Left Ventricle: The left ventricle is borderline dilated. There is moderate asymmetric left ventricular hypertrophy. Left ventricular systolic function is moderately reduced. The ejection fraction is estimated to be 35-40%. There is moderate global hypokinesis of the left ventricle. There is inferior wall severe hypokinesis. The interventricular septum is flattened, consistent with a right ventricular pressure/volume condition. Diastolic parameters suggest a restrictive filling pattern consistent with probable significantly elevated filling pressures. Right Ventricle: The right ventricle is severely dilated. Right ventricular systolic function is moderately reduced. Atria: Both atria are severely dilated. The interatrial septum grossly appears intact with no obvious evidence for an atrial septal defect. Mitral Valve: There is moderate mitral annular calcification. The mitral valve leaflets appear mildly thickened, but open well. There is moderate mitral regurgitation. Aortic Valve: The aortic valve is mildly calcified. There is a bioprosthetic aortic valve. The prosthetic aortic valve is well-seated. The gradients through the prosthetic aortic valve are within the normal range for this type of valve. The aortic valve mean gradient is 17.9 mmHg. There is no aortic regurgitation. Tricuspid Valve: Tricuspid leaflets are thickened. There is severe tricuspid regurgitation. The right ventricular systolic pressure is estimated to be at least 73 mmHg based on an estimated right atrial pressure of 15 mm Hg. Pulmonic Valve: The pulmonic valve is normal in structure and function. There is mild pulmonic regurgitation. Great Vessels: The aortic root is not well visualized. The dimensions of the ascending aorta are normal. The IVC is dilated (diameter is greater than 2.1 cm) and it collapses less than 50% with a sniff. This suggests a high right atrial pressure of 15 mm Hg. Pericardium/ Pleura There is no pericardial effusion. There is no pleural effusion. MMode/2D Measurements & Calculations LVIDd: 6.0 cm asc Aorta Diam: 3.7 cm LVIDs: 4.7 cm FS: 21.4 % IVSd: 1.5 cm LVPWd: 1.1 cm LV tran. diameter/BSA (cm/m^2): 2.6 LV sys. diameter/BSA (cm/m^2): 2.1 LA A2 area: 34.8 cm2 RA long axis: 7.8 cm LA A4 area: 37.1 cm2 RA area: 40.5 cm2 LA length (vol): 8.2 cm RA vol: 178.0 ml LA vol: 133.0 ml RA : 78.8 ml/m2 LA vol index: 58.9 ml/m2 IVC diam: 2.7 cm TAPSE: 1.4 cm Doppler Measurements & Calculations Ao V2 max: 267.3 cm/sec LVOT Max [place]: 71.8 cm/sec Ao V2 mean: 202.0 cm/sec LV V1 max P.1 mmHg Ao max P.6 mmHg LV V1 VTI: 12.0 cm Ao mean P.9 mmHg sev ratio: 0.27 Ao V2 VTI: 45.4 cm MV E max [place]: 136.9 cm/sec TR max [place]: 380.9 cm/sec MV A max [place]: 47.0 cm/sec TR max P.0 mmHg MV E/A: 2.9 MV dec time: 0.15 sec MR VTI: 184.0 cm MR PISA: 3.3 cm2 MR PISA radius: 0.73 cm Reading Physician:MARGIE
[2022-01-16 21:08] LABS: BUN Creatinine Ratio 21.7 (6-22); Blood Urea Nitrogen 40 mg/dL (9-20); Calcium 9.7 mg/dL (8.4-10.2); Carbon Dioxide 20 mmol/L (22-32); Chloride 97 mmol/L (98-107); Estimated Glomerular Filt Rate 37 mL/min (>60); Glucose 146 mg/dL (80-110); HEMOLYSIS < 15 (0-50); Potassium 5.2 mmol/L (3.4-5.1); Sodium 131 mmol/L (137-145)
[2022-01-16 21:19] LABS: Troponin I 0.079 ng/mL (0.01-0.034)
[2022-01-16] MEDS: AMLODIPINE 5 MG TABLET 10 MG PO (21:21)
[2022-01-16] MEDS: HEPARIN 5,000 UNIT/ML VIAL 5000 UNIT SUBCUT (21:21)
[2022-01-16 21:38] LABS: TSH w/ Reflex to FT4 7.99 uIU/mL (0.47-4.68)
[2022-01-16 22:04] LABS: Free T4, Direct Thyroxine 1.94 ng/dL (0.78-2.19)
--- NOTE | 2022-01-16 22:09 | PC.NURSE ---
Pt. arrived to the floor via w/c, admitted for CHF. Pt. is alert and oriented, orient to call light use and bed controls. Instructed to call if he needed to get up to the bathroom for safety. Pt. understood. Also explained to the pt. that he is on 1200 ml fluid restriction and for him to use the urinal for void to better assess the effectiveness of diuretics.
[2022-01-17] VITALS: BP 187/94; PULSE 51; RESP 18; TEMP 36.8; O2SAT 95
[2022-01-17] MEDS: ACETAMINOPHEN 325 MG TABLET 650 MG PO ×2 (01:58→09:18)
[2022-01-17 04:00] VITALS: BP 180/82; PULSE 81; RESP 19; TEMP 36.9; O2SAT 95
[2022-01-17 05:22] LABS: Add Manual Diff / Slide Review NO; Basophils Absolute Auto 100 /uL (0-100); Basophils Percent Auto 1.4 % (0-2); Eosinophils Absolute Auto 100 /uL (0-450); Eosinophils Percent Auto 1.5 % (2-4); Hematocrit 36.6 % (41-53); Hemoglobin 12.2 g/dL (13.5-17.5); Lymphocytes Absolute Auto 900 /uL (1100-4500); Lymphocytes Percent Auto 9.9 % (25-40); Mean Corpuscular HGB Conc 33.2 % (30-36); Mean Corpuscular Hemoglobin 26.2 PG (26-34); Mean Corpuscular Volume 78.9 fL (80-100); Monocytes Absolute Auto 1000 /uL (0-900); Monocytes Percent Auto 11.9 % (3-14); Neutrophils Absolute Auto 6500 /uL (1500-7000); Neutrophils Percent Auto 75.3 % (50-75); Platelet Count 190 X10^3/uL (150-400); Red Blood Cell Count 4.64 X10^6/uL (4.5-5.9); Red Cell Distribution Width 16.2 % (11.6-14.8); White Blood Cell Count 8.6 X10^3/uL (4.5-11.0)
[2022-01-17 05:30] LABS: BUN Creatinine Ratio 21.5 (6-22); Blood Urea Nitrogen 43 mg/dL (9-20); Calcium 9.6 mg/dL (8.4-10.2); Carbon Dioxide 21 mmol/L (22-32); Chloride 99 mmol/L (98-107); Estimated Glomerular Filt Rate 34 mL/min (>60); Glucose 113 mg/dL (80-110); HEMOLYSIS < 15 (0-50); Magnesium 1.9 mg/dL (1.6-2.3); Potassium 4.8 mmol/L (3.4-5.1); Sodium 131 mmol/L (137-145)
[2022-01-17 05:42] LABS: Troponin I 0.104 ng/mL (0.01-0.034)
[2022-01-17 06:00] VITALS: BP 180/82; PULSE 81; RESP 19; TEMP 36.9; O2SAT 95
[2022-01-17] MEDS: LEVOTHYROXINE 100 MCG TABLET PO (06:09)
[2022-01-17 08:00] VITALS: BP 164/99; PULSE 74; RESP 18; TEMP 36.4; O2SAT 94
--- NOTE | 2022-01-17 08:35 | PM.PN.1 ---
Exam Vital Signs (past 8 hours): - 01/17/22 04:00 01/17/22 06:00 01/17/22 08:00 Temperature 98.4 F 98.4 F 97.6 F Pulse Rate 81 81 74 Respiratory Rate 19 19 18 Blood Pressure 180/82 H 180/82 H 164/99 H Pulse Oximetry 95 95 94 Oxygen Flow Rate 0 Oxygen Delivery Method Room Air Oxygen Flow Rate 0 Narrative Exam Narrative: GEN: mild respiratory distress HEENT: moist mucous membranes, PERRL NECK: trachea midline, JVD+ PULM: crackles bilaterally, no wheezes CV: irregular, no murmurs ABD: soft, nontender, distended, no organomegaly EXT: 2+ pitting edema NEURO: awake, alert, oriented, no focal deficits Objective Labs Result Diagrams: 01/17/22 04:45 01/17/22 04:45 Labs: Laboratory Results - last 24 hr 01/16/22 01/16/22 01/16/22 12:55 13:17 13:17 WBC 8.3 RBC 4.85 Hgb 12.7 L Hct 38.4 L MCV 79.1 L MCH 26.3 MCHC 33.2 RDW 16.0 H Plt Count 187 Neut % (Auto) 81.1 H Lymph % (Auto) 7.9 L [place] % (Auto) 8.8 Eos % (Auto) 1.2 L Baso % (Auto) 1.0 Neut # (Auto) 6700 Lymph # (Auto) 700 L [place] # (Auto) 700 Eos # (Auto) 100 Baso # (Auto) 100 Sodium 132 L Potassium 5.6 H Chloride 98 Carbon Dioxide 23 BUN 40 H Creatinine 2.02 H Estimated GFR 33 L BUN/Creatinine Ratio 19.8 Glucose 130 H Lactate Calcium 9.8 Magnesium Total Bilirubin 1.2 AST 26 ALT 17 Alkaline Phosphatase 141 H Total Creatine Kinase CK-MB (CK-2) CK-MB (CK-2) Rel Index Troponin I NT-Pro-B Natriuret Pep Total Protein 8.6 H Albumin 4.4 Globulin 4.2 H Albumin/Globulin Ratio 1.0 TSH Free T4 Nasal Screen MRSA (PCR) SARS-CoV-2 (PCR) Negative 01/16/22 01/16/22 01/16/22 13:17 13:17 13:17 WBC RBC Hgb Hct MCV MCH MCHC RDW Plt Count Neut % (Auto) Lymph % (Auto) [place] % (Auto) Eos % (Auto) Baso % (Auto) Neut # (Auto) Lymph # (Auto) [place] # (Auto) Eos # (Auto) Baso # (Auto) Sodium Potassium Chloride Carbon Dioxide BUN Creatinine Estimated GFR BUN/Creatinine Ratio Glucose Lactate 1.6 Calcium Magnesium Total Bilirubin AST ALT Alkaline Phosphatase Total Creatine Kinase 72 CK-MB (CK-2) TNP CK-MB (CK-2) Rel Index TNP Troponin I 0.064 H NT-Pro-B Natriuret Pep 9310 H Total Protein Albumin Globulin Albumin/Globulin Ratio TSH Free T4 Nasal Screen MRSA (PCR) SARS-CoV-2 (PCR) 01/16/22 01/16/22 01/16/22 16:49 20:30 20:49 WBC RBC Hgb Hct MCV MCH MCHC RDW Plt Count Neut % (Auto) Lymph % (Auto) [place] % (Auto) Eos % (Auto) Baso % (Auto) Neut # (Auto) Lymph # (Auto) [place] # (Auto) Eos # (Auto) Baso # (Auto) Sodium 131 L Potassium 5.2 H Chloride 97 L Carbon Dioxide 20 L BUN 40 H Creatinine 1.84 H Estimated GFR 37 L BUN/Creatinine Ratio 21.7 Glucose 146 H Lactate Calcium 9.7 Magnesium Total Bilirubin AST ALT Alkaline Phosphatase Total Creatine Kinase CK-MB (CK-2) CK-MB (CK-2) Rel Index Troponin I 0.066 H NT-Pro-B Natriuret Pep Total Protein Albumin Globulin Albumin/Globulin Ratio TSH Free T4 Nasal Screen MRSA (PCR) Negative for mrsa SARS-CoV-2 (PCR) 01/16/22 01/16/22 01/17/22 20:49 20:49 04:45 WBC RBC Hgb Hct MCV MCH MCHC RDW Plt Count Neut % (Auto) Lymph % (Auto) [place] % (Auto) Eos % (Auto) Baso % (Auto) Neut # (Auto) Lymph # (Auto) [place] # (Auto) Eos # (Auto) Baso # (Auto) Sodium Potassium Chloride Carbon Dioxide BUN Creatinine Estimated GFR BUN/Creatinine Ratio Glucose Lactate Calcium Magnesium 1.9 Total Bilirubin AST ALT Alkaline Phosphatase Total Creatine Kinase CK-MB (CK-2) CK-MB (CK-2) Rel Index Troponin I 0.079 H NT-Pro-B Natriuret Pep Total Protein Albumin Globulin Albumin/Globulin Ratio TSH 7.99 H Free T4 1.94 Nasal Screen MRSA (PCR) SARS-CoV-2 (PCR) 01/17/22 01/17/22 04:45 04:45 WBC 8.6 RBC 4.64 Hgb 12.2 L Hct 36.6 L MCV 78.9 L MCH 26.2 MCHC 33.2 RDW 16.2 H Plt Count 190 Neut % (Auto) 75.3 H Lymph % (Auto) 9.9 L [place] % (Auto) 11.9 Eos % (Auto) 1.5 L Baso % (Auto) 1.4 Neut # (Auto) 6500 Lymph # (Auto) 900 L [place] # (Auto) 1000 H Eos # (Auto) 100 Baso # (Auto) 100 Sodium 131 L Potassium 4.8 Chloride 99 Carbon Dioxide 21 L BUN 43 H Creatinine 2.00 H Estimated GFR 34 L BUN/Creatinine Ratio 21.5 Glucose 113 H Lactate Calcium 9.6 Magnesium Total Bilirubin AST ALT Alkaline Phosphatase Total Creatine Kinase CK-MB (CK-2) CK-MB (CK-2) Rel Index Troponin I 0.104 H NT-Pro-B Natriuret Pep Total Protein Albumin Globulin Albumin/Globulin Ratio TSH Free T4 Nasal Screen MRSA (PCR) SARS-CoV-2 (PCR) [facility] Social History household members: spouse Smoking Status: Former smoker alcohol intake: former Assessment & Plan Assessment & Plan narrative: Mr. Odell is a 76M with PMH CAD, CHF who presents with acute CHF exacerbation and AUTUMN. 1. Acute respiratory distress from acute CHF exacerbation -previous notes EF was 50% last year -likely component of nonadherence due to not taking meds -consult dietary for CHF diet -continue lasix IV BID -consider starting metoprolol tomorrow after results of echo if CHF improving -ECHO to eval valve and EF -low salt diet -fluid restriction -nitro patch placed due to significant hypertension on admit, if worsens will order nitro gtt 2. AUTUMN with hyperkalemia -presumed secondary to CHF exacerbation -k on admit 5.6 -creatinine on admit 2.02, from baseline 1-1.3 -diurese as above -check creatinine daily -if not improving with diuresis will need renal imaging, fena -hold suhail/arb -repeat K stat, if rising will order dextrose, insulin, calcium 3. CAD s/p CABG, s/p avr -continue aspirin -no statin due to muscle injury previously -trend troponins 4. Elevated troponin -suspect secondary to demand from CHF exacerbation -trop 0.064->0.066 -no chest pain -repeat another troponin to rule out ACS 5. Hypertension -started nitro patch -continue amlodipine 6. BPH -tamsulosin 7. Hypothyroid -continue synthroid CODE: Full Proxy: Anahi Beachcailinbrittani, daughter I have utilized all available resources to reconcile the patient's home medications. Time Spent With Patient Critical Care time: I spent a total of [] minutes of critical care time on this patient's care today; this time is exclusive of procedural time. Quality VTE Deep Vein Thrombosis/Pulmonary Embolism Present on Admission: Yes
[2022-01-17] MEDS: AMLODIPINE 5 MG TABLET 10 MG PO (09:03)
[2022-01-17] MEDS: ASPIRIN EC 81 MG TABLET PO (09:04)
[2022-01-17] MEDS: FUROSEMIDE 100 MG/10 ML VIAL 80 MG IV (09:04)
[2022-01-17] MEDS: HEPARIN 5,000 UNIT/ML VIAL 5000 UNIT SUBCUT (09:04)
[2022-01-17] MEDS: TAMSULOSIN 0.4 MG CAPSULE PO (09:05)
--- NOTE | 2022-01-17 11:12 | CM.DANOTE ---
DCP: Case received, EMR reviewed and met with patient. Introduced self and role. Was able to obtain information regarding patient's baseline activity level prior to hospitalization. DCP Patient is a 76 year old male who admitted yesterday afternoon to the care of the hospitalist team. PCP: Dr. Bonner. Payer: confirmed: [employer] Medicare/Medicare. Patient came to the hospital via private vehicle secondary to having increased shortness of breath. According to notes, patient has had approximately 2 years of dyspnea, but patient has indicated that it as been worsening progressively over the last 3 months with increased swelling of his lower extremities. Patient has history of aortic valve replacement, CABG, asthma, chronic kidney disease. Patient is here for echo, diuresis, and beta-ayush. He is admitted for Acute Respiratory Distress from Acute CHF exacerbation. Met with patient in his room. He is pleasant, and was sitting up in his chair. Confirmed that he resides in [place] with spouse, Ayanna. He is independent at his baseline, as far as mobility, and driving. Confirmed that Dr. Bonner is still his primary care provider. P: DCP to continue to follow. Patient should be able to go home when he is deemed medically stable. Bina Tran RN/Weeder Discharge Planning/Care Management CM Discharge Assessment Start: 01/17/22 11:10 Freq: Status: Active Protocol: Document 01/17/22 11:11 (Rec: 01/17/22 11:12 [id number]) Discharge Planning Assessment Assigned [place] Bina Tran RN/Weeder Advance Directives? Yes Advance Directives on File No History Provided By Patient,Family Member,Medical Record Prior Living Arrangements House Household Members spouse Type of transporation used prior to Drives own vehicle admit Independent with ADL's Yes Is patient alert and oriented? Yes Caregiver for Another No Barriers to Discharge No Discharge Plan Home Transportation Arrangement Spouse Referrals Initiated None needed Whiteboard Updated in Patient Room with Yes name and ext. # of [place] Review Status In Process Next Review Type Continued Stay Review
[2022-01-17 11:15] LABS: Troponin I 0.084 ng/mL (0.01-0.034)
[2022-01-17 11:54] VITALS: BP 178/87; PULSE 70; RESP 18; TEMP 36.3; O2SAT 95
[2022-01-17 14:34] LABS: BUN Creatinine Ratio 21.2 (6-22); Blood Urea Nitrogen 44 mg/dL (9-20); Calcium 9.8 mg/dL (8.4-10.2); Carbon Dioxide 25 mmol/L (22-32); Chloride 97 mmol/L (98-107); Estimated Glomerular Filt Rate 32 mL/min (>60); Glucose 119 mg/dL (80-110); HEMOLYSIS < 15 (0-50); Potassium 4.5 mmol/L (3.4-5.1); Sodium 131 mmol/L (137-145)
--- NOTE | 2022-01-17 18:00 | PM.DS.1 ---
History of Present Illness History of Present Illness Date Patient Seen: 01/17/22 Time Patient Seen: 11:00 Chief complaint: chf exacerbation Narrative: Mr. Odell is a 76M with PMH CAD s/p NC, s/p bypass, s/p AVR, CHF, HTN, HL, asthma, hypothyroid, BPH who presents with shortness of breath. He states for at least 3 months he has had shortness of breath and it is progressively worsening. He has a cough. No fevers/chills. No chest pain. He has noted worsening leg and belly swelling. He has noted exertional dyspnea after just a few steps and short of breath when lying flat. He does not reliably take lasix, beta-ayush, or his blood pressure medications. He thinks lasix causes were lower leg swelling. He has had TONEY/ARB stopped in the past due to question of precipitating cough. In the ED workup was done, vitals notable for afebrile, heart rate ni the 90s, respiratory rate in 20s, bp 170s/90s. sats 97% on room air. Labs notable for WBC 8.3, hgb 12.7, plts 187. Na 132, K 5.6, BUN 40, creatinine 2.02. Trop 0.064->0.066, BNP 9310. Chest xray showed cardiomegaly and pulmonary edema. EKG showed right bundle, LAFB, frequent PVCs, question of sinus rhythm. He was given lasix and nitro patch and admitted for further treatment. Discharge Providers Provider Date of admission: 01/16/22 18:44 Discharge Date: 01/17/22 Primary care physician: Abebe Bonner DO Consults: 01/16/22 20:33 Consult to Dietitian, Adult Routine Comment: Reason For Exam: chf diet Discharge provider: Trever Álvarez DO Summary Hospital Course Discharge Diagnosis: 1. Acute respiratory distress from acute CHF exacerbation 2. AUTUMN with hyperkalemia 3. CAD s/p CABG, s/p avr 4. Elevated troponin 5. Hypertension 6. BPH 7. Hypothyroid Hospital Course: Patient admitted with acute dyspnea after stopping his Lasix recently due to increased leg cramps. He had 2+ pitting edema in lower extremities as well as pulmonary edema and cardiomegaly on chest x-ray. He was given IV Lasix with good diuresis and his shortness of breath improved. Developed an AUTUMN with creatinine of 2.0 likely due to diuresis. An echo was done which showed worsening EF of 35-40%, severely elevated RSVP of 73, moderate right ventricular dysfunction with severely dilated right ventricle, severe tricuspid regurgitation moderate mitral regurgitation. And felt stable enough to go home although I encouraged him to stay another night for continued diuresis and improvement in his kidney function. However he has follow-up with his PCP already arranged in 3 days so I ordered an outpatient BMP in 2 days to assess kidney function and had him double his home oral Lasix from 40 to 80 mg daily. I also provided a printout of his echo results so he can showed this to his PCP and distance education director who I suggested he get an appointment with a soon as possible. Patient was agreeable with all of this. Time Spent with Patient Time spent: Greater than 30 minutes Exam Vital Signs (past 8 hours): - 01/17/22 11:54 Temperature 97.3 F L Pulse Rate 70 Respiratory Rate 18 Blood Pressure 178/87 H Pulse Oximetry 95 Oxygen Flow Rate 0 Oxygen Delivery Method Room Air Oxygen Flow Rate 0 Narrative Exam Narrative: GEN: mild respiratory distress HEENT: moist mucous membranes, PERRL NECK: trachea midline, JVD+ PULM: crackles bilaterally, no wheezes CV: irregular, no murmurs ABD: soft, nontender, distended, no organomegaly EXT: 2+ pitting edema NEURO: awake, alert, oriented, no focal deficits Objective Labs Result Diagrams: 01/17/22 04:45 01/17/22 14:15 Labs: Laboratory Results - last 24 hr 01/16/22 01/16/22 01/16/22 20:30 20:49 20:49 WBC RBC Hgb Hct MCV MCH MCHC RDW Plt Count Neut % (Auto) Lymph % (Auto) Osborne % (Auto) Eos % (Auto) Baso % (Auto) Neut # (Auto) Lymph # (Auto) Osborne # (Auto) Eos # (Auto) Baso # (Auto) Sodium 131 L Potassium 5.2 H Chloride 97 L Carbon Dioxide 20 L BUN 40 H Creatinine 1.84 H Estimated GFR 37 L BUN/Creatinine Ratio 21.7 Glucose 146 H Calcium 9.7 Magnesium Troponin I TSH 7.99 H Free T4 1.94 Nasal Screen MRSA (PCR) Negative for mrsa 01/16/22 01/17/22 01/17/22 20:49 04:45 04:45 WBC 8.6 RBC 4.64 Hgb 12.2 L Hct 36.6 L MCV 78.9 L MCH 26.2 MCHC 33.2 RDW 16.2 H Plt Count 190 Neut % (Auto) 75.3 H Lymph % (Auto) 9.9 L Osborne % (Auto) 11.9 Eos % (Auto) 1.5 L Baso % (Auto) 1.4 Neut # (Auto) 6500 Lymph # (Auto) 900 L Osborne # (Auto) 1000 H Eos # (Auto) 100 Baso # (Auto) 100 Sodium Potassium Chloride Carbon Dioxide BUN Creatinine Estimated GFR BUN/Creatinine Ratio Glucose Calcium Magnesium 1.9 Troponin I 0.079 H TSH Free T4 Nasal Screen MRSA (PCR) 01/17/22 01/17/22 01/17/22 04:45 10:40 14:15 WBC RBC Hgb Hct MCV MCH MCHC RDW Plt Count Neut % (Auto) Lymph % (Auto) Osborne % (Auto) Eos % (Auto) Baso % (Auto) Neut # (Auto) Lymph # (Auto) Osborne # (Auto) Eos # (Auto) Baso # (Auto) Sodium 131 L 131 L Potassium 4.8 4.5 Chloride 99 97 L Carbon Dioxide 21 L 25 BUN 43 H 44 H Creatinine 2.00 H 2.08 H Estimated GFR 34 L 32 L BUN/Creatinine Ratio 21.5 21.2 Glucose 113 H 119 H Calcium 9.6 9.8 Magnesium Troponin I 0.104 H 0.084 H TSH Free T4 Nasal Screen MRSA (PCR) [facility] Social History household members: spouse Smoking Status: Former smoker alcohol intake: former Discharge Plan Discharge Plan Patient Disposition: Home Provider Discharge Comment: Please start taking 80mg lasix daily due to the extra water in your legs and lungs. Get a BMP in 2 days and have your PCP review it. Also setup an appt layla with your distance education director to review your new echo results. Discharge orders & Medications Prescriptions: Continued omeprazole 20 mg capsule,delayed release(DR/EC) 20 mg PO DAILY tamsulosin 0.4 mg capsule 0.4 mg PO DAILY lidocaine [AsperFlex (lidocaine)] 4 % adhesive patch,medicated 1 patch topical BID PRN (Reason: pain) Qty: 10 0RF Rx Instructions: Apply to painful area as needed every 12 hours. albuterol sulfate [Ventolin HFA] 90 MCG/PUFF HFA aerosol inhaler 2 puff INH PRN PRN (Reason: Adequate Ventilation) Qty: 0 fluticasone furoate-vilanterol [Breo Ellipta] 100 MCG/25 MCG blister with device 1 puff INH DAILY Qty: 0 levothyroxine 100 MCG tablet 150 mcg PO QAM Qty: 0 aspirin 81 MG tablet,delayed release (DR/EC) 81 mg PO QDAY Qty: 0 Claritin-D 12 Hour 5-120 mg tablet extended release 12 hr 1 tab PO ONCE Changed furosemide 40 MG tablet 80 mg PO Q DAY PRN Qty: 30 0RF Label Comments: stopped taking Lasix days ago due to increased leg swelling Follow up/Referrals: Abebe Bonner DO [Primary Care Provider] - Other Ambulatory Orders: Basic Metabolic Panel (Stat) Timeframe: 2 Days Facility[facility] - Location: Laboratory Ordered By: Trever Álvarez Visit Report/Discharge Packet Instructions: DI for Heart Failure Discharge Data Primary Care Provider: Abebe Bonner Attending Provider: Trever Álvarez VTE Deep Vein Thrombosis/Pulmonary Embolism Present on Admission: Yes
== END 2022-01-17 15:30 | disposition home or self-care (01) | DRG 291 ==
LOC: ED 18:40 → AC 20:05 → ICU 01-17 14:36 → AC 01-18 08:55
PROVIDERS: Internal Medicine; Admitting Provider Student in an Organized Health Care Education/Training Program; Emergency Provider Emergency Medicine; Family Provider Family Medicine; PCP Family Medicine; Referring Provider Physician Assistant; Visit Provider Student in an Organized Health Care Education/Training Program
DX: I11.0 Hypertensive heart disease with heart failure (principal); I50.23 Acute on chronic systolic (congestive) heart failure; N17.9 Acute kidney failure, unspecified; I24.8 Other forms of acute ischemic heart disease; E87.5 Hyperkalemia; I25.10 Atherosclerotic heart disease of native coronary artery without angina pectoris; N40.0 Benign prostatic hyperplasia without lower urinary tract symptoms; E03.9 Hypothyroidism, unspecified; R06.03 Acute respiratory distress; Z95.1 Presence of aortocoronary bypass graft; Z20.822 Contact with and (suspected) exposure to COVID-19; Z87.891 Personal history of nicotine dependence
CPT/HCPCS: 36415; 71046; 80048; 80053; 82550; 83605; 83735; 83880; 84439; 84443; 84484; 85025; 87635; 87797; 93005; 93306; 96374; 99284; 99285; C9803; G0378; J1644; J1940

== ENCOUNTER → 2022-03-03 13:27 | Outpatient (CLI) | payer OTHER, SELFPAY ==
[2022-01-16 20:25] VITALS: BMI 38.0
--- NOTE | 2022-03-03 | DI.RAD.S_ITS ---
PROCEDURE: XR THORACIC SPINE 3V INDICATIONS: thoracic spine pain TECHNIQUE: Three views of the thoracic spine were acquired. COMPARISON: None. FINDINGS: Bones: Due to positioning, the region of T3 and T4 was not well seen. Other thoracic vertebral bodies are seen and appear normal in height, some with mild degenerative endplate spurring. Mild S-shaped scoliosis of the thoracic spine. No suspicious bony lesions. Twelve pairs of ribs are noted, and appear intact where visualized. Soft tissues: No paravertebral stripe thickening. Median sternotomy wires and CABG changes overlie the chest. There is cardiomegaly. IMPRESSION: 1. Suboptimal visualization in the upper thoracic spine where the compression fracture is not excluded. 2. Mid and lower thoracic spine vertebral bodies appear intact. 3. Mild S-shaped thoracic scoliosis. Dictated by: Sandra Francois M.D. on 03/04/2022 at 9:57 Approved by: Sandra Francois M.D. on 03/04/2022 at 10:03
== END ==
PROVIDERS: Family Provider Family Medicine; PCP Family Medicine; Referring Provider Chiropractor; Visit Provider Chiropractor
DX: M54.6 Pain in thoracic spine (principal); M41.84 Other forms of scoliosis, thoracic region; Z95.1 Presence of aortocoronary bypass graft
CPT/HCPCS: 72072

== ENCOUNTER 2022-03-24 09:32 | Emergency (ER) | payer MEDICARE, SELFPAY ==
[2022-01-16 20:25] VITALS: BMI 38.0
[2022-03-24 10:16] VITALS: BP 134/106; PULSE 78; RESP 17; TEMP 36.2; O2SAT 99; BMI 38.0
--- NOTE | 2022-03-24 16:53 | ED.WEAKNESS ---
HPI - Weakness General Chief complaint: Weakness Stated complaint: weakness, tired,losses his breath easy Source: patient Mode of arrival: Wheelchair Related Data Home Medications Medication Instructions Recorded Confirmed albuterol sulfate 90 mcg/actuation 2 puff INH PRN PRN Adequate 08/09/16 01/16/22 aerosol inhaler (Ventolin HFA) Ventilation ##0 fluticasone furoate 100 1 puff INH DAILY ##0 08/09/16 01/16/22 mcg-vilanterol 25 mcg/dose inhalation powder (Breo Ellipta) aspirin 81 mg tablet,delayed 81 mg PO QDAY ##0 07/17/17 01/16/22 release levothyroxine 100 mcg tablet 150 mcg PO QAM ##0 07/17/17 01/16/22 omeprazole 20 mg capsule,delayed 20 mg PO DAILY 08/30/21 01/16/22 release tamsulosin 0.4 mg capsule 0.4 mg PO DAILY 08/30/21 01/16/22 loratadine 5 mg-pseudoephedrine ER 1 tab PO ONCE 01/16/22 01/16/22 120 mg tablet,extended release,12hr (Claritin-D 12 Hour) Previous Rx's Medication Instructions Recorded lidocaine 4 % topical patch 1 patch topical BID PRN pain #10 ea 01/05/22 (AsperFlex (lidocaine)) furosemide 40 mg tablet 80 mg PO Q DAY PRN #30 tabs 01/17/22 Allergies Allergy/AdvReac Type Severity Reaction Status Date / Time lisinopril [LISINOPRIL] Allergy Unknown Swelling Verified 01/16/22 13:12 of Lip/Tongue/Throat amlodipine Allergy Verified 03/24/22 10:16 escitalopram Allergy Verified 03/24/22 10:16 guanfacine Allergy Verified 01/16/22 13:12 trazodone Allergy Verified 03/24/22 10:15 simvastatin [SIMVASTATIN] AdvReac Severe Cramping Verified 01/16/22 22:20 of the Muscles carvedilol AdvReac Intermediate Difficulty Verified 01/16/22 22:20 Breathing losartan AdvReac Intermediate Difficulty Verified 01/16/22 22:20 Breathing spironolactone AdvReac Intermediate Headache Verified 01/16/22 22:20 valsartan [VALSARTAN] AdvReac Intermediate SOB, ST, Verified 01/16/22 13:12 dry cough furosemide [From LASIX] AdvReac Mild LEG CRAMPS Verified 01/16/22 13:12 diltiazem [From CARDIZEM] AdvReac Unknown Verified 01/16/22 13:12 hydralazine [HYDRALAZINE] AdvReac Unknown leg Verified 01/16/22 13:12 cramps, extreme gas Patient History Social History household members: spouse Smoking Status: Former smoker alcohol intake: former Smoking Status: Former smoker Substance Use Type: does not use Exam Initial Vital Signs Initial Vital Signs: Vital Signs Temperature 97.2 F L 03/24/22 10:16 Pulse Rate 78 03/24/22 10:16 Respiratory Rate 17 03/24/22 10:16 Blood Pressure 134/106 H 03/24/22 10:16 Pulse Oximetry 99 03/24/22 10:16 Oxygen Delivery Method 03/24/22 10:16 Course Vital Signs Vital signs: Vital Signs - 8 hr 03/24/22 10:16 Temperature 97.2 F L Pulse Rate 78 Respiratory Rate 17 Blood Pressure 134/106 H Pulse Oximetry 99 Oxygen Delivery Method Room Air Discharge Plan Departure Patient Disposition: Left Without Being Seen Clinical Impression: Patient left without being seen Prescriptions: No Action omeprazole 20 mg capsule,delayed release(DR/EC) 20 mg PO DAILY tamsulosin 0.4 mg capsule 0.4 mg PO DAILY lidocaine [AsperFlex (lidocaine)] 4 % adhesive patch,medicated 1 patch topical BID PRN (Reason: pain) Qty: 10 0RF Rx Instructions: Apply to painful area as needed every 12 hours. albuterol sulfate [Ventolin HFA] 90 MCG/PUFF HFA aerosol inhaler 2 puff INH PRN PRN (Reason: Adequate Ventilation) Qty: 0 fluticasone furoate-vilanterol [Breo Ellipta] 100 MCG/25 MCG blister with device 1 puff INH DAILY Qty: 0 levothyroxine 100 MCG tablet 150 mcg PO QAM Qty: 0 aspirin 81 MG tablet,delayed release (DR/EC) 81 mg PO QDAY Qty: 0 Claritin-D 12 Hour 5-120 mg tablet extended release 12 hr 1 tab PO ONCE furosemide 40 MG tablet 80 mg PO Q DAY PRN Qty: 30 0RF Label Comments: stopped taking Lasix days ago due to increased leg swelling
== END 2022-03-24 14:58 | disposition left against medical advice (07) ==
PROVIDERS: Emergency Provider Emergency Medicine; Family Provider Family Medicine; PCP Family Medicine
CPT/HCPCS: 99281

== ENCOUNTER 2022-03-24 17:42 | Observation (INO) | payer OTHER, SELFPAY ==
[2022-01-16 20:25] VITALS: BMI 38.0
--- NOTE | 2022-03-24 17:45 | DI.RAD.S_ITS ---
PROCEDURE: XR CHEST 1V INDICATIONS: shortness of breath TECHNIQUE: One view of the chest was acquired. COMPARISON: [facility], CR, XR CHEST 2V, 01/16/2022, 13:47. FINDINGS: Surgical changes and devices: Median sternotomy wires and surgical clips are seen. Lungs and pleura: Mild pulmonary vascular congestion is seen. No pleural effusions or pneumothorax. Mediastinum: Mediastinal contours appear normal. Heart size is enlarged. Bones and chest wall: No suspicious bony lesions. Overlying soft tissues appear unremarkable. IMPRESSION: Cardiomegaly and mild congestion. No definite focal infiltrate. No significant pleural effusion or pneumothorax. Dictated by: Rony Muller M.D. on 03/24/2022 at 18:15 Approved by: Rony Muller M.D. on 03/24/2022 at 18:17
[2022-03-24 17:47] VITALS: BP 181/112; PULSE 84; RESP 22; TEMP 36.3; O2SAT 97; BMI 36.9
[2022-03-24 18:04] LABS: Add Manual Diff / Slide Review NO; Basophils Absolute Auto 100 /uL (0-100); Basophils Percent Auto 1.1 % (0-2); Eosinophils Absolute Auto 100 /uL (0-450); Eosinophils Percent Auto 1.6 % (2-4); Hematocrit 37.3 % (41-53); Hemoglobin 12.2 g/dL (13.5-17.5); Lymphocytes Absolute Auto 700 /uL (1100-4500); Lymphocytes Percent Auto 8.7 % (25-40); Mean Corpuscular HGB Conc 32.8 % (30-36); Mean Corpuscular Hemoglobin 25.9 PG (26-34); Monocytes Absolute Auto 900 /uL (0-900); Monocytes Percent Auto 10.7 % (3-14); Neutrophils Absolute Auto 6300 /uL (1500-7000); Neutrophils Percent Auto 77.9 % (50-75); Platelet Count 225 X10^3/uL (150-400); Red Blood Cell Count 4.73 X10^6/uL (4.5-5.9); Red Cell Distribution Width 18.4 % (11.6-14.8); White Blood Cell Count 8.1 X10^3/uL (4.5-11.0)
[2022-03-24 18:07] LABS: Creatine Kinase 76 U/L (55-170); Lactate (Lactic Acid) 1.4 mmol/L (0.7-2.1)
[2022-03-24 18:09] LABS: Alanine Aminotransferase 20 IU/L (<50); Albumin 4.3 g/dL (3.5-5.0); Alkaline Phosphatase 160 U/L (38-126); Aspartate Aminotransferase 28 IU/L (17-59); BUN Creatinine Ratio 18.3 (6-22); Bilirubin Total 1.4 mg/dL (0.2-1.3); Blood Urea Nitrogen 35 mg/dL (9-20); Calcium 9.7 mg/dL (8.4-10.2); Carbon Dioxide 21 mmol/L (22-32); Chloride 93 mmol/L (98-107); Estimated Glomerular Filt Rate 35 mL/min (>60); Globulin 4.2 g/dL (1.7-4.1); Glucose 122 mg/dL (80-110); HEMOLYSIS < 15 (0-50); Potassium 5.3 mmol/L (3.4-5.1); Sodium 127 mmol/L (137-145); Total Protein 8.5 g/dL (6.3-8.2)
[2022-03-24 18:17] LABS: NT-proBNP (BNP-Adult 18+) 9600 pg/mL (<450)
[2022-03-24 18:19] LABS: Troponin I 0.062 ng/mL (0.01-0.034)
--- NOTE | 2022-03-24 18:20 | ED.SOB ---
HPI - SOB/Dyspnea General Chief Complaint: Shortness of Breath/Dyspnea Stated Complaint: SOB Time Seen by Provider: 03/24/22 17:59 Source: patient Mode of arrival: EMS Limitations: no limitations History of Present Illness HPI Narrative: Patient is a 76-year-old male history of aortic valve replacement, 2 vessel CABG in 2015, asthma, chronic kidney disease, hypertension presenting today with increased difficulty breathing. He states he usually takes his albuterol it seems to help his breathing however it is working as well today. No fever chills. He denies absolutely any chest pain or palpitations. He denies any orthopnea. Is mostly exertional dyspnea. He has been monitoring how he is feeling he just feels generally weak and tired. He actually was admitted to the hospital and of December for CHF exacerbation Related Data Home Medications Medication Instructions Recorded Confirmed albuterol sulfate 90 mcg/actuation 2 puff INH PRN PRN Adequate 08/09/16 03/24/22 aerosol inhaler (Ventolin HFA) Ventilation ##0 fluticasone furoate 100 1 puff INH DAILY ##0 08/09/16 01/16/22 mcg-vilanterol 25 mcg/dose inhalation powder (Breo Ellipta) aspirin 81 mg tablet,delayed 81 mg PO QDAY ##0 07/17/17 03/24/22 release levothyroxine 100 mcg tablet 150 mcg PO QAM ##0 07/17/17 01/16/22 omeprazole 20 mg capsule,delayed 20 mg PO DAILY 08/30/21 03/24/22 release tamsulosin 0.4 mg capsule 0.4 mg PO DAILY 08/30/21 03/24/22 loratadine 5 mg-pseudoephedrine ER 1 tab PO ONCE 01/16/22 03/24/22 120 mg tablet,extended release,12hr (Claritin-D 12 Hour) Previous Rx's Medication Instructions Recorded lidocaine 4 % topical patch 1 patch topical BID PRN pain #10 ea 01/05/22 (AsperFlex (lidocaine)) furosemide 40 mg tablet 80 mg PO Q DAY PRN #30 tabs 01/17/22 Allergies Allergy/AdvReac Type Severity Reaction Status Date / Time lisinopril [LISINOPRIL] Allergy Unknown Swelling Verified 01/16/22 13:12 of Lip/Tongue/Throat amlodipine Allergy Verified 03/24/22 10:16 escitalopram Allergy Verified 03/24/22 10:16 guanfacine Allergy Verified 01/16/22 13:12 trazodone Allergy Verified 03/24/22 10:15 simvastatin [SIMVASTATIN] AdvReac Severe Cramping Verified 01/16/22 22:20 of the Muscles carvedilol AdvReac Intermediate Difficulty Verified 01/16/22 22:20 Breathing losartan AdvReac Intermediate Difficulty Verified 01/16/22 22:20 Breathing spironolactone AdvReac Intermediate Headache Verified 01/16/22 22:20 valsartan [VALSARTAN] AdvReac Intermediate SOB, ST, Verified 01/16/22 13:12 dry cough furosemide [From LASIX] AdvReac Mild LEG CRAMPS Verified 01/16/22 13:12 diltiazem [From CARDIZEM] AdvReac Unknown Verified 01/16/22 13:12 hydralazine [HYDRALAZINE] AdvReac Unknown leg Verified 01/16/22 13:12 cramps, extreme gas Review of Systems Review of Systems Narrative: GENERAL: Denies chills, fatigue, malaise, fever, sweats, travel HEENT: Denies sinus pain, ear pain, sore throat, difficulty swallowing, neck pain RESPIRATORY: See HPI CARDIOVASCULAR: Denies chest pain, palpitations, orthopnea, edema GASTROINTESTINAL: Denies nausea, vomiting, abdominal pain, diarrhea, constipation, melena. : Denies dysuria, frequency, incontinence, hematuria, urinary retention, flank pain. MUSCULOSKELETAL: Denies weakness, joint pain, or bony pain SKIN: No rash, no erythema, no pruritus NEUROLOGIC: Denies weakness, dizziness, headache, numbness, change in speech, confusion PSYCHIATRIC: No concerning psychosocial issues. 12 point review of systems is negative except for those stated above and HPI Patient History Medical History (Updated 03/24/22 @ 23:45 by FREDA Andrews) Acute exacerbation of congestive heart failure CKD (chronic kidney disease) Hypertension Surgical History (Updated 03/24/22 @ 23:48 by FREDA Andrews) H/O umbilical hernia repair Hx of aortic valve replacement Status post double vessel coronary artery bypass Status post laser cataract surgery of both eyes Family History (Updated 03/24/22 @ 23:43 by FREDA Andrews) Son Alcoholic Father CVA (cerebral vascular accident) Mother Medical history unknown Social History household members: spouse Smoking Status: Former smoker alcohol intake: former Smoking Status: Former smoker Substance Use Type: does not use Exam Initial Vital Signs Initial Vital Signs: Vital Signs Temperature 97.4 F L 03/24/22 17:47 Pulse Rate 84 03/24/22 17:47 Respiratory Rate 22 03/24/22 17:47 Blood Pressure 181/112 H 03/24/22 17:47 Pulse Oximetry 97 03/24/22 17:47 Oxygen Delivery Method 03/24/22 17:47 GENERAL: Chronically ill 68-year-old male and in no acute distress. HEENT: Head atraumatic,EOMI, pupils reactive, face symmetric, moist mucous membranes CARDIOVASCULAR: Regular rate and rhythm without murmurs, rubs or gallops. RESPIRATORY: Slightly decreased breath sounds bilaterally no reason no respiratory distress mild rales ABDOMEN: Soft, nontender. Normoactive bowel sounds all 4 quadrants. No guarding or rebound. EXTREMITIES: Normal range of motion, no clubbing or edema. Neurovascularly intact NEUROLOGICAL: Alert and oriented x4.Normal gait and speech. SKIN: Warm, dry, no laceration, no petechiae, no rashes or lesions. Course Orders Ordered: ED Orders 03/24/22 19:45 Trop I [Troponin I] Stat Acetaminophen (Acetaminophen 325 Mg Tablet) 650 mg PO Q6H PRN PRN Reason: Fever/Mild Pain (1-3) Last Admin: 03/24/22 22:21 Dose: 650 mg Documented By: Aspirin (Aspirin Ec 81 Mg Tablet) 81 mg PO DAILY MOUNA Last Admin: 03/24/22 23:33 Dose: 81 mg Documented By: Dextrose (Dextrose 50 % In Water 25 Gm/50 Ml Syringe) 25 gm IV PRN PRN PRN Reason: Hypoglycemia Enoxaparin Sodium (Enoxaparin 40 Mg/0.4 Ml Syringe) 40 mg SUBCUT DAILY MOUNA Insulin Human Lispro (Insulin Lispro 100 Unit/Ml 3ml Vial) 0 unit SUBCUT ACHS MOUNA; Protocol Metoprolol Tartrate (Metoprolol Ir 25 Mg Tablet) 12.5 mg PO BID MOUNA Naloxone HCl (Naloxone 0.4 Mg/Ml Vial) 0.2 mg IV Q2MIN PRN PRN Reason: Opiate Reversal Pantoprazole Sodium (Pantoprazole Dr 20 Mg Tablet) 20 mg PO DAILY [facility] Tamsulosin HCl (Tamsulosin 0.4 Mg Capsule) 0.4 mg PO DAILY [facility] Discontinued Medications Amlodipine Besylate (Amlodipine 5 Mg Tablet) 5 mg PO NOW ONE Stop: 03/24/22 23:06 Last Admin: 03/24/22 23:33 Dose: 5 mg Documented By: HAVEN Aspirin (Aspirin Ec 81 Mg Tablet) 81 mg PO DAILY [facility] Bumetanide (Bumetanide 1 Mg/4 Ml Vial) 1 mg IV NOW ONE Stop: 03/24/22 18:32 Last Admin: 03/24/22 19:16 Dose: 1 mg Documented By: SHAWN Vital Signs Vital signs: Vital Signs - 8 hr 03/24/22 19:30 03/24/22 20:00 Pulse Rate 82 89 Respiratory Rate 20 23 Pulse Oximetry 97 98 MDM - SOB/Dyspnea Lab Data Result diagrams: 03/24/22 17:36 03/24/22 17:36 Labs: Lab Results 03/24/22 03/24/22 03/24/22 Range/Units 17:35 17:36 17:36 WBC 8.1 (4.5-11.0) X10^3/uL RBC 4.73 (4.5-5.9) X10^6/uL Hgb 12.2 L (13.5-17.5) g/dL Hct 37.3 L (41-53) % MCV 79.0 L (80-100) fL MCH 25.9 L (26-34) PG MCHC 32.8 (30-36) % RDW 18.4 H (11.6-14.8) % Plt Count 225 (150-400) X10^3/uL Neut % (Auto) 77.9 H (50-75) % Lymph % (Auto) 8.7 L (25-40) % [place] % (Auto) 10.7 (3-14) % Eos % (Auto) 1.6 L (2-4) % Baso % (Auto) 1.1 (0-2) % Neut # (Auto) 6300 (7836-8724) /uL Lymph # (Auto) 700 L (5776-5898) /uL [place] # (Auto) 900 (0-900) /uL Eos # (Auto) 100 (0-450) /uL Baso # (Auto) 100 (0-100) /uL Sodium 127 L (137-145) mmol/L Potassium 5.3 H (3.4-5.1) mmol/L Chloride 93 L (98-107) mmol/L Carbon Dioxide 21 L (22-32) mmol/L BUN 35 H (9-20) mg/dL Creatinine 1.91 H (0.66-1.25) mg/dL Estimated GFR 35 L (>60) mL/min BUN/Creatinine Ratio 18.3 (6-22) Glucose 122 H (80-110) mg/dL Hemoglobin A1c (4.0-6.0) % Lactate (0.7-2.1) mmol/L Calcium 9.7 (8.4-10.2) mg/dL Total Bilirubin 1.4 H (0.2-1.3) mg/dL AST 28 (17-59) IU/L ALT 20 (<50) IU/L Alkaline Phosphatase 160 H (38-126) U/L Total Creatine Kinase (55-170) U/L CK-MB (CK-2) CK-MB (CK-2) Rel Index Troponin I (0.01-0.034) ng/mL NT-Pro-B Natriuret Pep (<450) pg/mL Total Protein 8.5 H (6.3-8.2) g/dL Albumin 4.3 (3.5-5.0) g/dL Globulin 4.2 H (1.7-4.1) g/dL Albumin/Globulin Ratio 1.0 (1.0-2.8) TSH (0.47-4.68) uIU/mL SARS-CoV-2 (PCR) Negative (Negative) 03/24/22 03/24/22 03/24/22 Range/Units 17:36 17:36 17:36 WBC (4.5-11.0) X10^3/uL RBC (4.5-5.9) X10^6/uL Hgb (13.5-17.5) g/dL Hct (41-53) % MCV (80-100) fL MCH (26-34) PG MCHC (30-36) % RDW (11.6-14.8) % Plt Count (150-400) X10^3/uL Neut % (Auto) (50-75) % Lymph % (Auto) (25-40) % [place] % (Auto) (3-14) % Eos % (Auto) (2-4) % Baso % (Auto) (0-2) % Neut # (Auto) (0987-1730) /uL Lymph # (Auto) (4438-5444) /uL [place] # (Auto) (0-900) /uL Eos # (Auto) (0-450) /uL Baso # (Auto) (0-100) /uL Sodium (137-145) mmol/L Potassium (3.4-5.1) mmol/L Chloride (98-107) mmol/L Carbon Dioxide (22-32) mmol/L BUN (9-20) mg/dL Creatinine (0.66-1.25) mg/dL Estimated GFR (>60) mL/min BUN/Creatinine Ratio (6-22) Glucose (80-110) mg/dL Hemoglobin A1c (4.0-6.0) % Lactate 1.4 (0.7-2.1) mmol/L Calcium (8.4-10.2) mg/dL Total Bilirubin (0.2-1.3) mg/dL AST (17-59) IU/L ALT (<50) IU/L Alkaline Phosphatase (38-126) U/L Total Creatine Kinase 76 (55-170) U/L CK-MB (CK-2) TNP CK-MB (CK-2) Rel Index TNP Troponin I 0.062 H (0.01-0.034) ng/mL NT-Pro-B Natriuret Pep 9600 H (<450) pg/mL Total Protein (6.3-8.2) g/dL Albumin (3.5-5.0) g/dL Globulin (1.7-4.1) g/dL Albumin/Globulin Ratio (1.0-2.8) TSH (0.47-4.68) uIU/mL SARS-CoV-2 (PCR) (Negative) 03/24/22 03/24/22 03/24/22 Range/Units 17:36 17:36 19:45 WBC (4.5-11.0) X10^3/uL RBC (4.5-5.9) X10^6/uL Hgb (13.5-17.5) g/dL Hct (41-53) % MCV (80-100) fL MCH (26-34) PG MCHC (30-36) % RDW (11.6-14.8) % Plt Count (150-400) X10^3/uL Neut % (Auto) (50-75) % Lymph % (Auto) (25-40) % [place] % (Auto) (3-14) % Eos % (Auto) (2-4) % Baso % (Auto) (0-2) % Neut # (Auto) (3357-4292) /uL Lymph # (Auto) (4990-5960) /uL [place] # (Auto) (0-900) /uL Eos # (Auto) (0-450) /uL Baso # (Auto) (0-100) /uL Sodium (137-145) mmol/L Potassium (3.4-5.1) mmol/L Chloride (98-107) mmol/L Carbon Dioxide (22-32) mmol/L BUN (9-20) mg/dL Creatinine (0.66-1.25) mg/dL Estimated GFR (>60) mL/min BUN/Creatinine Ratio (6-22) Glucose (80-110) mg/dL Hemoglobin A1c 6.3 H (4.0-6.0) % Lactate (0.7-2.1) mmol/L Calcium (8.4-10.2) mg/dL Total Bilirubin (0.2-1.3) mg/dL AST (17-59) IU/L ALT (<50) IU/L Alkaline Phosphatase (38-126) U/L Total Creatine Kinase (55-170) U/L CK-MB (CK-2) CK-MB (CK-2) Rel Index Troponin I 0.063 H (0.01-0.034) ng/mL NT-Pro-B Natriuret Pep (<450) pg/mL Total Protein (6.3-8.2) g/dL Albumin (3.5-5.0) g/dL Globulin (1.7-4.1) g/dL Albumin/Globulin Ratio (1.0-2.8) TSH 3.80 (0.47-4.68) uIU/mL SARS-CoV-2 (PCR) (Negative) Imaging Data Chest x-ray: Radiologist's Impression: Signed Patient: Ashok Odell MR#: [id number] : 1945 Acct:[id number] Age/Sex: 76 / M Date of Service: 03/24/22 Loc: ED Accession Number: [id number] ?? Procedure: XR chest 1V Ordering Provider: Mychal Love MD PROCEDURE:? XR CHEST 1V ? INDICATIONS:? shortness of breath ? TECHNIQUE:? One view of the chest was acquired.? ? COMPARISON:? [facility], CR, XR CHEST 2V, 01/16/2022, 13:47. ? FINDINGS:? ? Surgical changes and devices:? Median sternotomy wires and surgical clips are seen. ? Lungs and pleura:? Mild pulmonary vascular congestion is seen.? No pleural effusions or pneumothorax.? ? Mediastinum:? Mediastinal contours appear normal.? Heart size is enlarged.? ? Bones and chest wall:? No suspicious bony lesions.? Overlying soft tissues appear unremarkable.? ? IMPRESSION:? Cardiomegaly and mild congestion.? No definite focal infiltrate.? No significant pleural effusion or pneumothorax. ? ? Dictated by: Rony Muller M.D. on 03/24/2022 at 18:15 ? ? ECG Data Interpretation: EKG 1. A loss of artifact PVCs right bundle-branch block EKG 2. Rhythm PVC right bundle-branch block no ST changes surprisingly similar to previous EKG 01/16/2022 [facility] Narrative Medical decision making narrative: Patient has a history of significant coronary artery disease presenting today with increasing shortness of breath. He has noted while in the emergency department have significant shortness of breath and tachypnea with exertion. He is found to be mildly hyperkalemic with a potassium of 5.3 his and a sodium of 127. His BNP is greater than 9000 symptoms is and history are suggestive of congestive heart failure. He has 2 indeterminate troponins which are stable some no active coronary artery disease he also denies any active chest pain. He actually is taking least notes listed as an allergy causes some muscle cramps. We discussed this he is given Bumex and responsive. He requires a wheelchair around the emergency department due to his severe dyspnea. He was previously admitted for similar earlier this year. Jordana Ingram accepts patient Discharge Plan Departure Patient Disposition: Admitted as Observation Clinical Impression: Acute exacerbation of congestive heart failure, Acute hyponatremia, Acute hyperkalemia Admit Date/Time: 03/24/22 20:57 Admit Provider: Anya Ingram
[2022-03-24 19:05] LABS: COVID19 -Nasal RAPID Negative (Negative)
[2022-03-24] MEDS: BUMETANIDE 1 MG/4 ML VIAL IV (19:16)
[2022-03-24 19:17] VITALS: PULSE 85; RESP 21; O2SAT 95
[2022-03-24 19:18] VITALS: BP 175/99; PULSE 81; RESP 20; O2SAT 96
[2022-03-24 19:30] VITALS: PULSE 82; RESP 20; O2SAT 97
[2022-03-24 20:00] VITALS: PULSE 89; RESP 23; O2SAT 98
[2022-03-24 20:19] LABS: Troponin I 0.063 ng/mL (0.01-0.034)
--- NOTE | 2022-03-24 21:03 | PC.NURSE ---
pt tachypneic with minimal movement in bed.
[2022-03-24 21:28] VITALS: BP 171/103; PULSE 88; RESP 29; TEMP 36.4; O2SAT 94
[2022-03-24 21:44] VITALS: BMI 36.8
--- NOTE | 2022-03-24 21:47 | DI.ECHO.S_ITS ---
[facility] +---------+ : : [address] [place] : : : : [id number] : : : : Phone: [phone]+ Echocardiogram Report + + :Name: KATERINE GARDINERNAVEEDJAZMÍNCECY Mcfarlane Mylene Study Date: 03/25/2022 Height: 68 in : :[facility] ReadingLocation: Weight: 243 lb : : Gender: Male BSA: 2.2 m2 : :: 1945 Age: 76 yrs BP: 171/103 mmHg: :Reason For Study: HEART FAILURE EXACERBATION : :Ordering Physician: LUANNE HAYES Performed By: Sera Spence : :Referring: LUANNE HAYES : + + Interpretation Summary Limited 2D Echocardiogram. The ejection fraction is estimated to be 35-40%. Septal motion is consistent with conduction abnormality. The interventricular septum is flattened, consistent with a right ventricular pressure/volume condition. The right ventricle is severely dilated. Right ventricular systolic function is moderately reduced. Severe Biatrial Enlargement. The right ventricular systolic pressure is estimated to be at least 64 mmHg based on an estimated right atrial pressure of 15 mm Hg. There is severe tricuspid regurgitation. The IVC is dilated (diameter is greater than 2.1 cm) and it collapses less than 50% with a sniff. This suggests a high right atrial pressure of 15 mm Hg. No significant change appreciated, from prior study in 01/17/2022 Procedure: A two-dimensional transthoracic echocardiogram with color flow and Doppler was performed. The study quality was technically adequate. Comparison is made with the echocardiogram of 01/17/2022. The heart rate ranged between 70-84 bpm during the study. Left Ventricle: The left ventricle is normal in size. There is moderate asymmetric left ventricular hypertrophy. The ejection fraction is estimated to be 35-40%. Septal motion is consistent with conduction abnormality. The interventricular septum is flattened, consistent with a right ventricular pressure/volume condition. Right Ventricle: The right ventricle is severely dilated. Right ventricular systolic function is moderately reduced. Atria: The left atrium is severely dilated. The right atrium is severely dilated. Tricuspid Valve: There is severe tricuspid regurgitation. The right ventricular systolic pressure is estimated to be at least 64 mmHg based on an estimated right atrial pressure of 15 mm Hg. Great Vessels: The IVC is dilated (diameter is greater than 2.1 cm) and it collapses less than 50% with a sniff. This suggests a high right atrial pressure of 15 mm Hg. Pericardium/ Pleura There is no pericardial effusion. There is no pleural effusion. MMode/2D Measurements & Calculations LVIDd: 5.7 cm LA A2 area: 30.8 cm2 LVIDs: 4.8 cm LA A4 area: 31.7 cm2 FS: 15.8 % LA length (vol): 7.8 cm IVSd: 1.7 cm LA vol: 106.5 ml LVPWd: 0.99 cm LA vol index: 48.0 ml/m2 LV tran. diameter/BSA (cm/m^2): 2.6 LV sys. diameter/BSA (cm/m^2): 2.2 RA long axis: 7.0 cm RVD1 (basal): 5.5 cm RA area: 35.3 cm2 RVD2 (mid): 4.5 cm RA vol: 150.8 ml TAPSE: 1.4 cm RA : 67.9 ml/m2 IVC diam: 3.0 cm Doppler Measurements & Calculations TR max vikram: 349.6 cm/sec TR max P.9 mmHg Reading Physician:KISHOR
[2022-03-24] MEDS: ACETAMINOPHEN 325 MG TABLET 650 MG PO (22:21)
--- NOTE | 2022-03-24 23:10 | P.HP_ITS ---
History of Present Illness History of Present Illness Date Patient Seen: 03/24/22 Time Patient Seen: 23:10 Chief complaint: SOB Narrative: Ashok Odell is a 76 y.o. male with CAD s/p IL, s/p double bypass, s/p AVR, CHF, HTN, HLD, asthma, hypothyroid, BPH who presents with shortness of breath. He was hospitalized in December of this year and has had worsening shortness of breath and it is progressively worsening. At that time, echo indicated a reduced EF of He has a cough. No fevers/chills. No chest pain. He has noted worsening leg and belly swelling. He has noted exertional dyspnea after just a few steps and short of breath. He has been weighing daily and takes both blood pressure medications and diuretics when he exceeds 243 lbs. He states he is unable to sleep, wakes up in the middle of the night and cannot go back to sleep. He was recently working in his yard trying to cut down a tree branch. His was holding it while he sawed through it, it snapped, flew up in the area and either landed on him causing him to fall and rolled on his back and neck. He saw a chiropractor stating some instrument he used caused more neck pain and bruising on his back and neck. He states he has been eating more packaged foods, he and his just lost their son 6 months ago and both are depressed and not motivated to eat healthy. He has a lot of intolerances to medications including amlodipine (causes swelling), beta blockers, toney-inhibitors/arbs, diuretics, and statins. Chest x-ray indicates cardiomegaly with mild congestion. He is afebrile, blood pressure 171/103, heart rate 88, respiratory rate 29, oxygen saturation of 94% on room air he weighs 110 kg with a BMI of 36.8. He is mildly anemic with a hemoglobin of 12.2 and hematocrit of 37.3, sodium 127 potassium 5.3 chloride 93 bicarb 21 BUN 35 creatinine 1.91 which is lower than his baseline with an EGFR of 35, his glucose is 122 and his A1c is 6.3 total bilirubin is 1.4 alk-phos 160 troponin is 0.063 proBNP is 9600 TSH is within normal limits and COVID-19 PCR is negative. His 3rd troponin is pending for 0200. Patient History Medical History (Updated 03/24/22 @ 23:45 by FREDA Andrews) Acute exacerbation of congestive heart failure CKD (chronic kidney disease) Hypertension Surgical History (Updated 03/24/22 @ 23:48 by FREDA Andrews) H/O umbilical hernia repair Hx of aortic valve replacement Status post double vessel coronary artery bypass Status post laser cataract surgery of both eyes Family & Social History Family History (Updated 03/24/22 @ 23:43 by FREDA Andrews) Son Alcoholic Father CVA (cerebral vascular accident) Mother Medical history unknown Social History: household members spouse Prior Living Arrangements House Safety & Behavioral: Feels Safe in Current Yes Environment Been Physically Hurt or No Threatened By a Person Tobacco & Substance use: Smoking Status Former smoker alcohol intake former Substance Use Type does not use Meds Home Medications and Allergies Home Medications Medication Instructions Recorded Confirmed Type albuterol sulfate 90 mcg/actuation 2 puff INH PRN PRN Adequate 08/09/16 03/24/22 History aerosol inhaler (Ventolin HFA) Ventilation ##0 fluticasone furoate 100 1 puff INH DAILY ##0 08/09/16 01/16/22 History mcg-vilanterol 25 mcg/dose inhalation powder (Breo Ellipta) aspirin 81 mg tablet,delayed 81 mg PO QDAY ##0 07/17/17 03/24/22 History release levothyroxine 100 mcg tablet 150 mcg PO QAM ##0 07/17/17 01/16/22 History omeprazole 20 mg capsule,delayed 20 mg PO DAILY 08/30/21 03/24/22 History release tamsulosin 0.4 mg capsule 0.4 mg PO DAILY 08/30/21 03/24/22 History lidocaine 4 % topical patch 1 patch topical BID PRN pain #10 ea 01/05/22 01/16/22 Rx (AsperFlex (lidocaine)) loratadine 5 mg-pseudoephedrine ER 1 tab PO ONCE 01/16/22 03/24/22 History 120 mg tablet,extended release,12hr (Claritin-D 12 Hour) furosemide 40 mg tablet 80 mg PO Q DAY PRN #30 tabs 01/17/22 03/24/22 Rx Allergies Allergy/AdvReac Type Severity Reaction Status Date / Time lisinopril [LISINOPRIL] Allergy Unknown Swelling Verified 01/16/22 13:12 of Lip/Tongue/Throat amlodipine Allergy Verified 03/24/22 10:16 escitalopram Allergy Verified 03/24/22 10:16 guanfacine Allergy Verified 01/16/22 13:12 trazodone Allergy Verified 03/24/22 10:15 simvastatin [SIMVASTATIN] AdvReac Severe Cramping Verified 01/16/22 22:20 of the Muscles carvedilol AdvReac Intermediate Difficulty Verified 01/16/22 22:20 Breathing losartan AdvReac Intermediate Difficulty Verified 01/16/22 22:20 Breathing spironolactone AdvReac Intermediate Headache Verified 01/16/22 22:20 valsartan [VALSARTAN] AdvReac Intermediate SOB, ST, Verified 01/16/22 13:12 dry cough furosemide [From LASIX] AdvReac Mild LEG CRAMPS Verified 01/16/22 13:12 diltiazem [From CARDIZEM] AdvReac Unknown Verified 01/16/22 13:12 hydralazine [HYDRALAZINE] AdvReac Unknown leg Verified 01/16/22 13:12 cramps, extreme gas Review of Systems Review of Systems ROS: Yes All systems reviewed with the patient and are negative except as otherwise documented Exam Vital Signs (past 8 hours): - 03/24/22 17:47 03/24/22 19:17 03/24/22 19:18 Temperature 97.4 F L Pulse Rate 84 85 Respiratory Rate 22 21 Blood Pressure 181/112 H 175/99 H Pulse Oximetry 97 95 Oxygen Delivery Method Room Air 03/24/22 19:18 03/24/22 19:30 03/24/22 20:00 Temperature Pulse Rate 81 82 89 Respiratory Rate 20 20 23 Blood Pressure Pulse Oximetry 96 97 98 Oxygen Delivery Method 03/24/22 22:23 03/24/22 21:28 Temperature 97.6 F Pulse Rate 88 Respiratory Rate 29 H Blood Pressure 171/103 H Pulse Oximetry 94 Oxygen Delivery Method Room Air Oxygen Delivery Method Room Air Narrative Exam Narrative: Gen: Alert, oriented, obese 76 y.o. male, Cushionoid appearing HEENT: normocephalic, atraumatic, conjunctiva clear, sclera non-icteric, oral mucosa pink and moist Neck: supple, full ROM, no JVD, trachea is midline Resp: Lungs CTA, non-labored breathing CV: distant and irregularly irregular, no murmur or rubs Abd: soft, non-tender, normoactive BTs Skin: no lesions or rashes, dry and intact Neuro: Alert and oriented X 4 w/no focal deficits. Speech clear and coherent. Extremities: plus 2 pitting edema, moves all 4 extremities, is ambulatory, negative Eufemia?s sign Psyche: normal mood and affect. Objective Labs Result Diagrams: 03/24/22 17:36 03/24/22 17:36 Labs: Laboratory Results - last 24 hr 03/24/22 03/24/22 03/24/22 17:35 17:36 17:36 WBC 8.1 RBC 4.73 Hgb 12.2 L Hct 37.3 L MCV 79.0 L MCH 25.9 L MCHC 32.8 RDW 18.4 H Plt Count 225 Neut % (Auto) 77.9 H Lymph % (Auto) 8.7 L [place] % (Auto) 10.7 Eos % (Auto) 1.6 L Baso % (Auto) 1.1 Neut # (Auto) 6300 Lymph # (Auto) 700 L [place] # (Auto) 900 Eos # (Auto) 100 Baso # (Auto) 100 Sodium 127 L Potassium 5.3 H Chloride 93 L Carbon Dioxide 21 L BUN 35 H Creatinine 1.91 H Estimated GFR 35 L BUN/Creatinine Ratio 18.3 Glucose 122 H Lactate Calcium 9.7 Total Bilirubin 1.4 H AST 28 ALT 20 Alkaline Phosphatase 160 H Total Creatine Kinase CK-MB (CK-2) CK-MB (CK-2) Rel Index Troponin I NT-Pro-B Natriuret Pep Total Protein 8.5 H Albumin 4.3 Globulin 4.2 H Albumin/Globulin Ratio 1.0 SARS-CoV-2 (PCR) Negative 03/24/22 03/24/22 03/24/22 17:36 17:36 17:36 WBC RBC Hgb Hct MCV MCH MCHC RDW Plt Count Neut % (Auto) Lymph % (Auto) [place] % (Auto) Eos % (Auto) Baso % (Auto) Neut # (Auto) Lymph # (Auto) [place] # (Auto) Eos # (Auto) Baso # (Auto) Sodium Potassium Chloride Carbon Dioxide BUN Creatinine Estimated GFR BUN/Creatinine Ratio Glucose Lactate 1.4 Calcium Total Bilirubin AST ALT Alkaline Phosphatase Total Creatine Kinase 76 CK-MB (CK-2) TNP CK-MB (CK-2) Rel Index TNP Troponin I 0.062 H NT-Pro-B Natriuret Pep 9600 H Total Protein Albumin Globulin Albumin/Globulin Ratio SARS-CoV-2 (PCR) 03/24/22 19:45 WBC RBC Hgb Hct MCV MCH MCHC RDW Plt Count Neut % (Auto) Lymph % (Auto) [place] % (Auto) Eos % (Auto) Baso % (Auto) Neut # (Auto) Lymph # (Auto) [place] # (Auto) Eos # (Auto) Baso # (Auto) Sodium Potassium Chloride Carbon Dioxide BUN Creatinine Estimated GFR BUN/Creatinine Ratio Glucose Lactate Calcium Total Bilirubin AST ALT Alkaline Phosphatase Total Creatine Kinase CK-MB (CK-2) CK-MB (CK-2) Rel Index Troponin I 0.063 H NT-Pro-B Natriuret Pep Total Protein Albumin Globulin Albumin/Globulin Ratio SARS-CoV-2 (PCR) Assessment & Plan Assessment & Plan narrative: Ashok Odell is admitted for a CHF exacerbation. He is also now confirmed to have Diabetes Type 2. HFrEF acute on chronic exacerbation, present on admission * Difficult to administer beta blockers and toney inhibitors * w/new dx, may benefit from SGLT2 inhibitors to address both heart failure and DM. Will need cardiology/nephrology consult who can evaluate and prescribe this * Limited echo in on 03/26 * Trend trops, they are elevated, though lower than his prior admission * Has had difficulty tolerating diuretics * Start low dose immediate release metoprolol. New diagnosis of DM Type 2 with an A1c of 6.3 * He will need diabetic teaching * Fluid restricted carb controlled diet Hypertensive urgency, acute and present on admission * He will be administered amlodipine, has a side effect of swelling. Recommend elevating legs * He was taking on a prn basis and will be given a one time dose of 5 mg VTE Prophylaxis: Wells risk score 0 X subQ heparin 5000 units twice daily X Bilateral SCDs Patient is admitted to the inpatient service due to the severity of disease, risks of further disease progression and this stay is expected to exceed 2 midnights. FEN: IV fluids: saline lock, diet: fluid restricted carb controlled diet, labs: CBC, C/BMP, liver enzymes, Mag, PT/INR Consultants none. Dispo: probable d/c to home Code status: Full Code as discussed with the patient who identifies Ayanna Briceno as his surrogate and POA. [X] I have utilized all available immediate resources to obtain, update, or review of the patient's current medications VTE Deep Vein Thrombosis/Pulmonary Embolism Present on Admission: No MIPS - Admit I confirm the patient?s Advance Care Plan is present, Code status is documented, Surrogate decision maker is in patient?s record: Yes COVID-19 COVID-19 status: Negative Result date/Date tested (Pos, Neg/Pending): 03/24/22 Quality MIPS - DC The patient has current or prior documentation of left ventricular ejection fraction (LVEF) less than 40%, or moderate or severely depressed left ventricular systolic function.: Yes A. The patient was prescribed or already taking an Angiotensin-Converting Enzyme (TONEY) Inhibitor, or Angiotensin Receptor Christopher (ARB).: No B. The patient was prescribed or already taking a beta-christopher. [If Yes to Both A & B, STOP here]: No Patient not prescribed/taking TONEY or ARB for medical/patient/system reason(s) including (ex: allergy, intolerance, contraindication).: Cough, sore throat, difficulty breathing Patient not prescribed/taking Beta-christopher for medical/patient/system reason(s) including (ex: allergy, intolerance, contraindication).: difficulty breathing
[2022-03-24 23:28] LABS: Hemoglobin A1C% w Est Avg Glu 6.3 % (4.0-6.0)
[2022-03-24] MEDS: AMLODIPINE 5 MG TABLET PO (23:33)
[2022-03-24] MEDS: ASPIRIN EC 81 MG TABLET PO (23:33)
[2022-03-25] VITALS: BP 142/83; PULSE 79; RESP 18; TEMP 36.6; O2SAT 95
[2022-03-25 04:00] VITALS: BP 156/97; PULSE 81; RESP 18; TEMP 36.7; O2SAT 93
[2022-03-25 05:09] LABS: Add Manual Diff / Slide Review NO; Basophils Absolute Auto 100 /uL (0-100); Eosinophils Absolute Auto 100 /uL (0-450); Eosinophils Percent Auto 1.4 % (2-4); Hematocrit 34.8 % (41-53); Hemoglobin 11.7 g/dL (13.5-17.5); Lymphocytes Absolute Auto 700 /uL (1100-4500); Mean Corpuscular HGB Conc 33.7 % (30-36); Mean Corpuscular Hemoglobin 26.1 PG (26-34); Mean Corpuscular Volume 77.4 fL (80-100); Monocytes Absolute Auto 900 /uL (0-900); Monocytes Percent Auto 11.4 % (3-14); Neutrophils Absolute Auto 6100 /uL (1500-7000); Neutrophils Percent Auto 77.2 % (50-75); Platelet Count 201 X10^3/uL (150-400); Red Blood Cell Count 4.49 X10^6/uL (4.5-5.9); Red Cell Distribution Width 18.2 % (11.6-14.8); White Blood Cell Count 7.9 X10^3/uL (4.5-11.0)
[2022-03-25 05:17] LABS: Alanine Aminotransferase 20 IU/L (<50); Alkaline Phosphatase 142 U/L (38-126); Aspartate Aminotransferase 25 IU/L (17-59); BUN Creatinine Ratio 17.8 (6-22); Bilirubin Total 1.7 mg/dL (0.2-1.3); Blood Urea Nitrogen 34 mg/dL (9-20); Calcium 9.6 mg/dL (8.4-10.2); Carbon Dioxide 22 mmol/L (22-32); Chloride 93 mmol/L (98-107); Estimated Glomerular Filt Rate 35 mL/min (>60); Globulin 3.9 g/dL (1.7-4.1); Glucose 100 mg/dL (80-110); HEMOLYSIS < 15 (0-50); Magnesium 1.9 mg/dL (1.6-2.3); Sodium 128 mmol/L (137-145); Total Protein 7.9 g/dL (6.3-8.2)
[2022-03-25 06:52] LABS: Thyroid Stimulating Hormone 3.07 uIU/mL (0.47-4.68)
[2022-03-25 07:51] VITALS: O2SAT 95
[2022-03-25 08:20] VITALS: BP 154/89; PULSE 81; RESP 18; TEMP 36.7; O2SAT 96
[2022-03-25] MEDS: METOPROLOL IR 25 MG TABLET 12.5 MG PO (08:43)
[2022-03-25] MEDS: ASPIRIN EC 81 MG TABLET PO (08:43)
[2022-03-25] MEDS: TAMSULOSIN 0.4 MG CAPSULE PO (08:43)
[2022-03-25] MEDS: PANTOPRAZOLE DR 20 MG TABLET PO (08:43)
[2022-03-25] MEDS: ENOXAPARIN 40 MG/0.4 ML SYRINGE SUBCUT (08:44)
[2022-03-25 09:31] LABS: Troponin I 0.073 ng/mL (0.01-0.034)
--- NOTE | 2022-03-25 09:40 | PM.DS.1 ---
History of Present Illness History of Present Illness Date Patient Seen: 03/25/22 Chief complaint: SOB Narrative: FREDA Juarez: Ashok Odell is a 76 y.o. male with CAD s/p SC, s/p double bypass, s/p AVR, CHF, HTN, HLD, asthma, hypothyroid, BPH who presents with shortness of breath. He was hospitalized in December of this year and has had worsening shortness of breath and it is progressively worsening. At that time, echo indicated a reduced EF of He has a cough. No fevers/chills. No chest pain. He has noted worsening leg and belly swelling. He has noted exertional dyspnea after just a few steps and short of breath. He has been weighing daily and takes both blood pressure medications and diuretics when he exceeds 243 lbs. He states he is unable to sleep, wakes up in the middle of the night and cannot go back to sleep. He was recently working in his yard trying to cut down a tree branch. His was holding it while he sawed through it, it snapped, flew up in the area and either landed on him causing him to fall and rolled on his back and neck. He saw a chiropractor stating some instrument he used caused more neck pain and bruising on his back and neck. He states he has been eating more packaged foods, he and his just lost their son 6 months ago and both are depressed and not motivated to eat healthy. He has a lot of intolerances to medications including amlodipine (causes swelling), beta blockers, suhail-inhibitors/arbs, diuretics, and statins. Chest x-ray indicates cardiomegaly with mild congestion. He is afebrile, blood pressure 171/103, heart rate 88, respiratory rate 29, oxygen saturation of 94% on room air he weighs 110 kg with a BMI of 36.8. He is mildly anemic with a hemoglobin of 12.2 and hematocrit of 37.3, sodium 127 potassium 5.3 chloride 93 bicarb 21 BUN 35 creatinine 1.91 which is lower than his baseline with an EGFR of 35, his glucose is 122 and his A1c is 6.3 total bilirubin is 1.4 alk-phos 160 troponin is 0.063 proBNP is 9600 TSH is within normal limits and COVID-19 PCR is negative. His 3rd troponin is pending for 0200. Discharge Providers Provider Date of admission: 03/24/22 20:57 Discharge Date: 03/25/22 Primary care physician: Abebe Bonner DO Consults: 03/24/22 21:48 Consult to Respiratory Therapy Evaluate & Treat Comment: Physician Instructions: Evaluate and treat 03/25/22 00:42 Consult to Dietitian, Adult Routine Comment: Reason For Exam: new dx of diabetes, diabetic education Discharge provider: Liborio Matias DO Summary Hospital Course Discharge Diagnosis: acute on chronic systolic heart failure, present on admission Pre-diabetes Hypertensive urgency, acute and present on admission CKD stage III Chronic hyponatremia Myocardial injury Obesity with BMI 36.9 Hospital Course: Ashok Odell is a 76 y.o. male with CAD s/p SC, s/p double bypass, s/p AVR, CHF, HTN, HLD, asthma, hypothyroid, BPH who presented with shortness of breath and was admitted with a decompensated heart failure. He improved quickly with diuresis. Troponins were mildly elevated but downtrended quickly and is likely in the setting of heart failure. The following morning he felt improved with minimal dyspnea and wished to be discharged home. He was able to ambulate without assistance or the need for oxygen and he felt improved. He seems to believe that lasix gives him leg swelling and cramping, education was provided but he did not wish to continue that medication. He did agree to trial of torsemide, so this was sent for him to continue at home. Further follow up with his PCP is recommended. Limited echocardiogram performed showed no signficant changes to previous studies with similar EF around 35%. No other medications are recommeded at this time. He was started on beta ayush therapy, but reports intolerance to suhail-inhibitors or ARBs and does not wish to trial this medication again. Exam Vital Signs (past 8 hours): - 03/25/22 04:00 03/25/22 07:00 03/25/22 07:51 Temperature 98.0 F Pulse Rate 81 Respiratory Rate 18 Blood Pressure 156/97 H Pulse Oximetry 93 95 Oxygen Delivery Method Room Air Oxygen Flow Rate 0 03/25/22 08:20 Temperature 98.0 F Pulse Rate 81 Respiratory Rate 18 Blood Pressure 154/89 H Pulse Oximetry 96 Oxygen Delivery Method Oxygen Flow Rate 0 Oxygen Delivery Method Room Air Oxygen Flow Rate 0 Narrative Exam Narrative: GEN: no acute distress, WDWN HEENT: moist mucous membranes, PERRL NECK: trachea midline, no JVD PULM: crackles bilaterally, no wheezes CV: irregular, no murmurs ABD: soft, nontender, distended, no organomegaly EXT: minimal edema bilateral lower extremities, no joint effusions NEURO: awake, alert, oriented, no focal deficits Objective Labs Result Diagrams: 03/25/22 05:00 03/25/22 05:00 Labs: Laboratory Results - last 24 hr 03/24/22 03/24/22 03/24/22 17:35 17:36 17:36 WBC 8.1 RBC 4.73 Hgb 12.2 L Hct 37.3 L MCV 79.0 L MCH 25.9 L MCHC 32.8 RDW 18.4 H Plt Count 225 Neut % (Auto) 77.9 H Lymph % (Auto) 8.7 L [place] % (Auto) 10.7 Eos % (Auto) 1.6 L Baso % (Auto) 1.1 Neut # (Auto) 6300 Lymph # (Auto) 700 L [place] # (Auto) 900 Eos # (Auto) 100 Baso # (Auto) 100 Sodium 127 L Potassium 5.3 H Chloride 93 L Carbon Dioxide 21 L BUN 35 H Creatinine 1.91 H Estimated GFR 35 L BUN/Creatinine Ratio 18.3 Glucose 122 H Hemoglobin A1c Lactate Calcium 9.7 Magnesium Total Bilirubin 1.4 H AST 28 ALT 20 Alkaline Phosphatase 160 H Total Creatine Kinase CK-MB (CK-2) CK-MB (CK-2) Rel Index Troponin I NT-Pro-B Natriuret Pep Total Protein 8.5 H Albumin 4.3 Globulin 4.2 H Albumin/Globulin Ratio 1.0 TSH SARS-CoV-2 (PCR) Negative 03/24/22 03/24/22 03/24/22 17:36 17:36 17:36 WBC RBC Hgb Hct MCV MCH MCHC RDW Plt Count Neut % (Auto) Lymph % (Auto) [place] % (Auto) Eos % (Auto) Baso % (Auto) Neut # (Auto) Lymph # (Auto) [place] # (Auto) Eos # (Auto) Baso # (Auto) Sodium Potassium Chloride Carbon Dioxide BUN Creatinine Estimated GFR BUN/Creatinine Ratio Glucose Hemoglobin A1c Lactate 1.4 Calcium Magnesium Total Bilirubin AST ALT Alkaline Phosphatase Total Creatine Kinase 76 CK-MB (CK-2) TNP CK-MB (CK-2) Rel Index TNP Troponin I 0.062 H NT-Pro-B Natriuret Pep 9600 H Total Protein Albumin Globulin Albumin/Globulin Ratio TSH SARS-CoV-2 (PCR) 03/24/22 03/24/22 03/24/22 17:36 17:36 19:45 WBC RBC Hgb Hct MCV MCH MCHC RDW Plt Count Neut % (Auto) Lymph % (Auto) [place] % (Auto) Eos % (Auto) Baso % (Auto) Neut # (Auto) Lymph # (Auto) [place] # (Auto) Eos # (Auto) Baso # (Auto) Sodium Potassium Chloride Carbon Dioxide BUN Creatinine Estimated GFR BUN/Creatinine Ratio Glucose Hemoglobin A1c 6.3 H Lactate Calcium Magnesium Total Bilirubin AST ALT Alkaline Phosphatase Total Creatine Kinase CK-MB (CK-2) CK-MB (CK-2) Rel Index Troponin I 0.063 H NT-Pro-B Natriuret Pep Total Protein Albumin Globulin Albumin/Globulin Ratio TSH 3.80 SARS-CoV-2 (PCR) 03/25/22 03/25/22 03/25/22 01:56 05:00 05:00 WBC 7.9 RBC 4.49 L Hgb 11.7 L Hct 34.8 L MCV 77.4 L MCH 26.1 MCHC 33.7 RDW 18.2 H Plt Count 201 Neut % (Auto) 77.2 H Lymph % (Auto) 9.0 L [place] % (Auto) 11.4 Eos % (Auto) 1.4 L Baso % (Auto) 1.0 Neut # (Auto) 6100 Lymph # (Auto) 700 L [place] # (Auto) 900 Eos # (Auto) 100 Baso # (Auto) 100 Sodium Potassium Chloride Carbon Dioxide BUN Creatinine Estimated GFR BUN/Creatinine Ratio Glucose Hemoglobin A1c Lactate Calcium Magnesium Total Bilirubin AST ALT Alkaline Phosphatase Total Creatine Kinase CK-MB (CK-2) CK-MB (CK-2) Rel Index Troponin I 0.080 H NT-Pro-B Natriuret Pep Total Protein Albumin Globulin Albumin/Globulin Ratio TSH 3.07 SARS-CoV-2 (PCR) 03/25/22 03/25/22 05:00 08:20 WBC RBC Hgb Hct MCV MCH MCHC RDW Plt Count Neut % (Auto) Lymph % (Auto) [place] % (Auto) Eos % (Auto) Baso % (Auto) Neut # (Auto) Lymph # (Auto) [place] # (Auto) Eos # (Auto) Baso # (Auto) Sodium 128 L Potassium 5.0 Chloride 93 L Carbon Dioxide 22 BUN 34 H Creatinine 1.91 H Estimated GFR 35 L BUN/Creatinine Ratio 17.8 Glucose 100 Hemoglobin A1c Lactate Calcium 9.6 Magnesium 1.9 Total Bilirubin 1.7 H AST 25 ALT 20 Alkaline Phosphatase 142 H Total Creatine Kinase CK-MB (CK-2) CK-MB (CK-2) Rel Index Troponin I 0.073 H NT-Pro-B Natriuret Pep Total Protein 7.9 Albumin 4.0 Globulin 3.9 Albumin/Globulin Ratio 1.0 TSH SARS-CoV-2 (PCR) PFSH Medical History (Updated 03/24/22 @ 23:45 by FREDA Andrews) Acute exacerbation of congestive heart failure CKD (chronic kidney disease) Hypertension Surgical History (Updated 03/24/22 @ 23:48 by FREDA Andrews) H/O umbilical hernia repair Hx of aortic valve replacement Status post double vessel coronary artery bypass Status post laser cataract surgery of both eyes Family History (Updated 03/24/22 @ 23:43 by FREDA Andrews) Son Alcoholic Father CVA (cerebral vascular accident) Mother Medical history unknown Social History household members: spouse Smoking Status: Former smoker alcohol intake: former Discharge Plan Discharge Plan Patient Disposition: Home Provider Discharge Comment: You were admitted to the hospital with a mild exacerbation of your heart failure. Furosemide is being changed to torsemide. Please continue taking your medications as prescribed. A small dose of metoprolol was added as well which you did tolerate. Please follow up with your primary care provider for continued medication optimization. Discharge orders & Medications Prescriptions: New metoprolol tartrate 25 mg Tablet 12.5 mg PO BID 30 Days Qty: 30 0RF torsemide 20 mg tablet 20 mg PO BID 30 Days Qty: 60 0RF Continued omeprazole 20 mg capsule,delayed release(DR/EC) 20 mg PO DAILY tamsulosin 0.4 mg capsule 0.4 mg PO DAILY lidocaine [AsperFlex (lidocaine)] 4 % adhesive patch,medicated 1 patch topical BID PRN (Reason: pain) Qty: 10 0RF Rx Instructions: Apply to painful area as needed every 12 hours. albuterol sulfate [Ventolin HFA] 90 MCG/PUFF HFA aerosol inhaler 2 puff INH PRN PRN (Reason: Adequate Ventilation) Qty: 0 fluticasone furoate-vilanterol [Breo Ellipta] 100 MCG/25 MCG blister with device 1 puff INH DAILY Qty: 0 levothyroxine 100 MCG tablet 150 mcg PO QAM Qty: 0 aspirin 81 MG tablet,delayed release (DR/EC) 81 mg PO QDAY Qty: 0 Claritin-D 12 Hour 5-120 mg tablet extended release 12 hr 1 tab PO ONCE Discontinued furosemide 40 MG tablet 80 mg PO Q DAY PRN Qty: 30 0RF Label Comments: stopped taking Lasix days ago due to increased leg swelling Follow up/Referrals: Abebe Bonner DO [Primary Care Provider] - Diet/Activity/Treatments Diet: Diet as Tolerated and Low-sodium Diet comment: limit fluid to 1.5 L daily, limit excess sodium intake try to keep <2g. Activity: As tolerated Visit Report/Discharge Packet Instructions: Lifestyle Changes as Effective as Drugs in Preventing Progression to Diabet, Torsemide, Metoprolol Discharge Data Primary Care Provider: Abebe Bonner
--- NOTE | 2022-03-25 10:50 | CM.DANOTE ---
Patient is a 76 yo male who was admitted on 03/24/22 for SOB. Pt has [facility] for insurance and his PCP is Dr. Abebe Bonner. EMR was reviewed. Per MD, pt was admitted in Dec with SOB and reduced EF on Echo and has had ongoing dyspnea and SOB and admitted for CHF exacerbation and needing diuresis. Per RN, pt has been SBA for ambulation in room and independent and has improved and no noted concerns for d/c. SW met bedside with pt and explained role and he confirms he has had approximately 2 years of dyspnea, but Patient has history of aortic valve replacement, CABG, asthma, chronic kidney disease. Pt is here for diuresis, and beta-ayush. Confirmed that pt still resides in [place] with spouse, Ayanna. He is independent at his baseline, as far as mobility, and driving. Confirmed that Dr. Bonner is still his primary care provider and already has an appointment scheduled for next week. Spouse drives as well and plans to provide transport at d/c and they have local supportive Dtr Anahi who can assist as needed but also works. Pt denies any hx of HH or SNF and does not use DME for ambulation and DPOA is spouse and then Dtr. Pt is hopeful to d/c home today via spouse POV and does not anticipate any needs at d/c and states he feels a lot better. SW inquired about pt's low appetite and grief for recent passing of his adult son. Pt became tearful and states about 6 months ago son unexpectedly and it has been hard as son lived on their property in a trailer and was quite involved in their life. SW provided [facility] grief support info and pt appreciative and confirms that they have gotten some grief counseling and have some supportive things in place at home for processing his . Plan: Patient to d/c home around lunchtime via spouse POV and no further SW needs at this time. RACQUEL Jose Discharge Planning/Care Management CM Discharge Assessment Start: 03/25/22 10:48 Freq: Status: Active Protocol: Document 03/25/22 10:48 BF (Rec: 03/25/22 10:49 BF [id number]) Discharge Planning Assessment Assigned Sports Official RACQUEL Elizabeth DPOA/Assigned Designee Name spouse and then Dtr Advance Directives? Yes Advance Directives on File No History Provided By Patient,Family Member,Medical Record Has Patient been admitted in last 30 No days? Prior Living Arrangements House Comment Last admission in Dec 2021 this year and discharged to home with no needs Household Members spouse Type of transporation used prior to Drives own vehicle admit Independent with ADL's Yes Is patient alert and oriented? Yes Caregiver for Another No Barriers to Discharge No Discharge Plan Home Transportation Arrangement Spouse Referrals Initiated None needed Whiteboard Updated in Patient Room with Yes name and ext. # of Sports Official Review Status In Process Please Provide Date Initial DC 03/25/22 Assessment Was Performed Next Review Type Continued Stay Review
== END 2022-03-25 11:09 | disposition home or self-care (01) ==
LOC: ED 18:14 → AC 21:22
PROVIDERS: Emergency Medicine; Admitting Provider Nurse Practitioner Family; Emergency Provider Emergency Medicine; Family Provider Family Medicine; PCP Family Medicine; Referring Provider Emergency Medicine; Visit Provider Nurse Practitioner Family
DX: I13.0 Hypertensive heart and chronic kidney disease with heart failure and stage 1 through stage 4 chronic kidney disease, or unspecified chronic kidney disease (principal); I50.23 Acute on chronic systolic (congestive) heart failure; N18.9 Chronic kidney disease, unspecified; E87.1 Hypo-osmolality and hyponatremia; E11.22 Type 2 diabetes mellitus with diabetic chronic kidney disease; Z95.1 Presence of aortocoronary bypass graft; Z20.822 Contact with and (suspected) exposure to COVID-19
CPT/HCPCS: 36415; 71045; 80053; 82550; 82962; 83036; 83605; 83735; 83880; 84443; 84484; 85025; 87635; 93005; 93307; 96372; 96374; 99284; C9803; G0378; J1650; J1815

== ENCOUNTER 2022-05-01 11:17 | Emergency (ER) | payer OTHER, SELFPAY ==
[2022-05-01] VITALS (12 sets, daily range): BP systolic 174–196; BP diastolic 77–108; PULSE 85–92; RESP 18–35; TEMP 36.6; O2SAT 95–99
--- NOTE | 2022-05-01 11:31 | DI.RAD.S_ITS ---
PROCEDURE: XR CHEST 1V INDICATIONS: chest pain TECHNIQUE: One view of the chest was acquired. COMPARISON: [facility], CR, XR CHEST 1V, 03/24/2022, 17:57. FINDINGS: Surgical changes and devices: Median sternotomy. Lungs and pleura: Lungs are clear. No pleural effusions or pneumothorax. Mediastinum: Mediastinal contours appear normal. Heart size is enlarged. Bones and chest wall: No suspicious bony lesions. Overlying soft tissues appear unremarkable. IMPRESSION: Cardiomegaly. No acute process. Dictated by: Tom Benavidez M.D. on 05/01/2022 at 11:16 Approved by: Tom Benavidez M.D. on 05/01/2022 at 11:16
--- NOTE | 2022-05-01 11:43 | ED.GENADULT ---
HPI - General Adult General Chief complaint: Shortness of Breath/Dyspnea Stated complaint: SOB t-1 Time Seen by Provider: 05/01/22 11:28 Source: patient and family Mode of arrival: Wheelchair History of Present Illness HPI narrative: 76-year-old male. Multiple chronic medical illness. Has a history aortic valve replacement, CHF. Is on Lasix. Over the past couple days has had worsening shortness of breath and dyspnea on exertion and conversational dyspnea and orthopnea. He states he actually has not gained any weight. He is having lower extremity swelling but does not necessarily think that it is more than normal. He has been taking his Lasix. He thinks that his Lasix is what is making his symptoms worse. He did take an extra dose of his Lasix last evening but has not taken any of his medicines this morning. No chest pain. Does have a nonproductive cough. No fevers. No palpitations. He has had decreased appetite recently. Has had some nausea but no vomiting. No change in bowel habits. Related Data Home Medications Medication Instructions Recorded Confirmed albuterol sulfate 90 mcg/actuation 2 puff INH PRN PRN Adequate 08/09/16 03/24/22 aerosol inhaler (Ventolin HFA) Ventilation ##0 fluticasone furoate 100 1 puff INH DAILY ##0 08/09/16 01/16/22 mcg-vilanterol 25 mcg/dose inhalation powder (Breo Ellipta) aspirin 81 mg tablet,delayed 81 mg PO QDAY ##0 07/17/17 03/24/22 release levothyroxine 100 mcg tablet 150 mcg PO QAM ##0 07/17/17 03/25/22 omeprazole 20 mg capsule,delayed 20 mg PO DAILY 08/30/21 03/24/22 release tamsulosin 0.4 mg capsule 0.4 mg PO DAILY 08/30/21 03/24/22 loratadine 5 mg-pseudoephedrine ER 1 tab PO ONCE 01/16/22 03/24/22 120 mg tablet,extended release,12hr (Claritin-D 12 Hour) Previous Rx's Medication Instructions Recorded lidocaine 4 % topical patch 1 patch topical BID PRN pain #10 ea 01/05/22 (AsperFlex (lidocaine)) Allergies Allergy/AdvReac Type Severity Reaction Status Date / Time lisinopril [LISINOPRIL] Allergy Unknown Swelling Verified 05/01/22 11:30 of Lip/Tongue/Throat amlodipine Allergy Verified 05/01/22 11:30 escitalopram Allergy Verified 05/01/22 11:30 guanfacine Allergy Verified 05/01/22 11:30 trazodone Allergy Verified 05/01/22 11:30 simvastatin [SIMVASTATIN] AdvReac Severe Cramping Verified 05/01/22 11:30 of the Muscles carvedilol AdvReac Intermediate Difficulty Verified 05/01/22 11:30 Breathing losartan AdvReac Intermediate Difficulty Verified 05/01/22 11:30 Breathing spironolactone AdvReac Intermediate Headache Verified 05/01/22 11:30 valsartan [VALSARTAN] AdvReac Intermediate SOB, ST, Verified 05/01/22 11:30 dry cough diltiazem [From CARDIZEM] AdvReac Unknown Verified 05/01/22 11:30 hydralazine [HYDRALAZINE] AdvReac Unknown leg Verified 05/01/22 11:30 cramps, extreme gas Review of Systems Review of Systems ROS Unobtainable: All systems reviewed & are unremarkable except as noted in HPI and below Patient History Medical History Acute exacerbation of congestive heart failure CKD (chronic kidney disease) Hypertension Surgical History (Updated 03/24/22 @ 23:48 by FREDA Andrews) H/O umbilical hernia repair Hx of aortic valve replacement Status post double vessel coronary artery bypass Status post laser cataract surgery of both eyes Family History (Updated 03/24/22 @ 23:43 by FREDA Andrews) Son Alcoholic Father CVA (cerebral vascular accident) Mother Medical history unknown Social History household members: spouse Smoking Status: Former smoker alcohol intake: former Smoking Status: Former smoker alcohol intake frequency: 0-2 drinks per day Substance Use Type: does not use Exam Initial Vital Signs Initial Vital Signs: Vital Signs Temperature 97.8 F 05/01/22 11:26 Pulse Rate 92 H 05/01/22 11:26 Respiratory Rate 35 H 05/01/22 11:26 Blood Pressure 183/105 H 05/01/22 11:26 Pulse Oximetry 96 05/01/22 11:26 Oxygen Delivery Method 05/01/22 11:26 Const General: cooperative HENMT Head: normal to inspection and normocephalic Resp Effort & Inspection: not labored, no respiratory distress and tachypneic Auscultation: clear to auscultation bilaterally Cardio Rate: regular rate Rhythm: abnormal rhythm GI Inspection: normal to inspection Skin General: no rashes or lesions noted Neuro General: patient alert, patient awake, patient oriented x3 and moves all extremities Cognition: normal cognition Speech: speech normal Extrem General: edema Course Orders Ordered: ED Orders 05/01/22 11:30 Covid-19 + FLU A/B + RSV - PCR Stat 05/01/22 11:31 XR chest 1V Stat 05/01/22 11:36 EKG-12 Lead Stat 05/01/22 11:40 Complete Blood Count AUTO DIFF Stat Comprehensive Metabolic Panel Stat Lipase Stat Magnesium Stat NT-proBNP (BNP-Adult 18+) Stat Partial Thromboplastin Time Stat Prothrombin Time INR Stat Troponin & CK Cardiac Panel Stat Vital Signs Vital signs: Vital Signs - 8 hr 05/01/22 11:26 05/01/22 11:28 05/01/22 11:28 Temperature 97.8 F Pulse Rate 92 H 89 Respiratory Rate 35 H 23 Blood Pressure 183/105 H 183/105 H Pulse Oximetry 96 99 Oxygen Delivery Method Room Air Room Air 05/01/22 11:30 05/01/22 11:30 05/01/22 12:00 Temperature Pulse Rate 86 87 Respiratory Rate 30 H 18 Blood Pressure 175/77 H Pulse Oximetry 99 96 Oxygen Delivery Method 05/01/22 12:30 05/01/22 13:00 05/01/22 13:30 Temperature Pulse Rate 88 87 87 Respiratory Rate 27 H 24 19 Blood Pressure Pulse Oximetry 96 97 95 Oxygen Delivery Method Room Air 05/01/22 14:00 05/01/22 14:06 Temperature Pulse Rate 88 90 Respiratory Rate 27 H 22 Blood Pressure Pulse Oximetry 98 95 Oxygen Delivery Method Medical Decision Making Medical Records Medical records reviewed: Yes I reviewed the patient's medical records. Lab Data Lab results reviewed: Yes I reviewed the patient's lab results. Result diagrams: 05/01/22 11:40 05/01/22 11:40 Labs: Lab Results 05/01/22 05/01/22 05/01/22 Range/Units 11:30 11:40 11:40 WBC 7.3 (4.5-11.0) X10^3/uL RBC 4.93 (4.5-5.9) X10^6/uL Hgb 13.0 L (13.5-17.5) g/dL Hct 39.6 L (41-53) % MCV 80.3 (80-100) fL MCH 26.4 (26-34) PG MCHC 32.9 (30-36) % RDW 19.8 H (11.6-14.8) % Plt Count 219 (150-400) X10^3/uL Neut % (Auto) 76.2 H (50-75) % Lymph % (Auto) 8.4 L (25-40) % [place] % (Auto) 12.8 (3-14) % Eos % (Auto) 1.5 L (2-4) % Baso % (Auto) 1.1 (0-2) % Neut # (Auto) 5600 (1742-2833) /uL Lymph # (Auto) 600 L (9583-3977) /uL [place] # (Auto) 900 (0-900) /uL Eos # (Auto) 100 (0-450) /uL Baso # (Auto) 100 (0-100) /uL PT 15.9 H (10.1-12.7) SECONDS INR 1.4 H (0.9-1.3) APTT 34 (26-36) SECONDS Sodium (137-145) mmol/L Potassium (3.4-5.1) mmol/L Chloride (98-107) mmol/L Carbon Dioxide (22-32) mmol/L BUN (9-20) mg/dL Creatinine (0.66-1.25) mg/dL Estimated GFR (>60) mL/min BUN/Creatinine Ratio (6-22) Glucose (80-110) mg/dL Calcium (8.4-10.2) mg/dL Magnesium (1.6-2.3) mg/dL Total Bilirubin (0.2-1.3) mg/dL AST (17-59) IU/L ALT (<50) IU/L Alkaline Phosphatase (38-126) U/L Total Creatine Kinase (55-170) U/L CK-MB (CK-2) CK-MB (CK-2) Rel Index Troponin I (0.01-0.034) ng/mL NT-Pro-B Natriuret Pep (<450) pg/mL Total Protein (6.3-8.2) g/dL Albumin (3.5-5.0) g/dL Globulin (1.7-4.1) g/dL Albumin/Globulin Ratio (1.0-2.8) Lipase (23-300) U/L SARS-CoV-2 (PCR) Negative (Negative) Influenza A (RT-PCR) Flu a negative (NEGATIVE) Influenza B (RT-PCR) Flu b negative (NEGATIVE) RSV (PCR) Negative (Negative) 05/01/22 05/01/22 Range/Units 11:40 11:40 WBC (4.5-11.0) X10^3/uL RBC (4.5-5.9) X10^6/uL Hgb (13.5-17.5) g/dL Hct (41-53) % MCV (80-100) fL MCH (26-34) PG MCHC (30-36) % RDW (11.6-14.8) % Plt Count (150-400) X10^3/uL Neut % (Auto) (50-75) % Lymph % (Auto) (25-40) % [place] % (Auto) (3-14) % Eos % (Auto) (2-4) % Baso % (Auto) (0-2) % Neut # (Auto) (7458-4954) /uL Lymph # (Auto) (0640-2140) /uL [place] # (Auto) (0-900) /uL Eos # (Auto) (0-450) /uL Baso # (Auto) (0-100) /uL PT (10.1-12.7) SECONDS INR (0.9-1.3) APTT (26-36) SECONDS Sodium 128 L (137-145) mmol/L Potassium 4.7 (3.4-5.1) mmol/L Chloride 92 L (98-107) mmol/L Carbon Dioxide 21 L (22-32) mmol/L BUN 53 H (9-20) mg/dL Creatinine 2.42 H (0.66-1.25) mg/dL Estimated GFR 27 L (>60) mL/min BUN/Creatinine Ratio 21.9 (6-22) Glucose 120 H (80-110) mg/dL Calcium 10.0 (8.4-10.2) mg/dL Magnesium 2.2 (1.6-2.3) mg/dL Total Bilirubin 1.7 H (0.2-1.3) mg/dL AST 31 (17-59) IU/L ALT 22 (<50) IU/L Alkaline Phosphatase 160 H (38-126) U/L Total Creatine Kinase 93 (55-170) U/L CK-MB (CK-2) TNP CK-MB (CK-2) Rel Index TNP Troponin I 0.056 H (0.01-0.034) ng/mL NT-Pro-B Natriuret Pep 36234 H (<450) pg/mL Total Protein 8.6 H (6.3-8.2) g/dL Albumin 4.5 (3.5-5.0) g/dL Globulin 4.1 (1.7-4.1) g/dL Albumin/Globulin Ratio 1.1 (1.0-2.8) Lipase 119 (23-300) U/L SARS-CoV-2 (PCR) (Negative) Influenza A (RT-PCR) (NEGATIVE) Influenza B (RT-PCR) (NEGATIVE) RSV (PCR) (Negative) Imaging Data Chest x-ray: Radiologist's Impression: [address] [address] XRay Report Signed Patient: Ashok Odell MR#: [id number] : 1945 Acct:[id number] Age/Sex: 76 / M Date of Service: 05/01/22 Loc: ED Accession Number: [id number] ?? Procedure: XR chest 1V Ordering Provider: Aureliano Rouse D.O. PROCEDURE:? XR CHEST 1V ? INDICATIONS:? chest pain ? TECHNIQUE:? One view of the chest was acquired.? ? [facility] ? FINDINGS:? ? Surgical changes and devices:? Median sternotomy. ? Lungs and pleura:? Lungs are clear.? No pleural effusions or pneumothorax.? ? Mediastinum:? Mediastinal contours appear normal.? Heart size is enlarged. ? Bones and chest wall:? No suspicious bony lesions.? Overlying soft tissues appear unremarkable.? ? IMPRESSION:? Cardiomegaly.? No acute process. ? ? Dictated by: Tom Benavidez M.D. on 05/01/2022 at 11:16 ? ? Approved by: Tom Benavidez M.D. on 05/01/2022 at 11:16? ECG Data Attestation: I personally reviewed and interpreted this ECG as follows: Interpretation: Sinus rhythm ventricular rate of 83 Frequent PVCs Right bundle-branch block No ST T wave changes MDM Narrative Medical decision making narrative: Chest x-ray is unremarkable. He is not gained any weight. He does have lower extremity swelling but this is not necessarily more than baseline. His BNP is higher than baseline. He has no chest pain. Not hypoxic. I did discuss the case with on-call cardiology at [facility]. They recommended increasing his Lasix from 40 mg twice a day to either 60 mg twice a day or 80 mg twice a day. They also recommended that we could start spironolactone but the patient states that this has caused him to have severe headaches in the past. The pain be his to discharge him home. He is going to increase his Lasix to 60 mg twice a day. If his symptoms do not improve he will increase it to 80 mg. He should be receiving a call from his flask fitter's office for follow-up next week. He was given strict return precautions. He expressed understanding and agreement. Discharge Plan Departure Patient Disposition: Home Clinical Impression: Congestive heart failure Instructions: Congestive Heart Failure (Alternative Therapy) Activity Restrictions/Additional Instructions: I recommend that you continue to take all of your medications as directed however I would recommend you increase your Lasix/furosemide from 40 mg twice a day to 60 mg twice a day. You can increase this further to 80 mg twice a day like we discussed. You should be receiving a call from your flask fitter's office for follow-up next week. Return to the emergency department for any new or worsening symptoms. Prescriptions: No Action omeprazole 20 mg capsule,delayed release(DR/EC) 20 mg PO DAILY tamsulosin 0.4 mg capsule 0.4 mg PO DAILY lidocaine [AsperFlex (lidocaine)] 4 % adhesive patch,medicated 1 patch topical BID PRN (Reason: pain) Qty: 10 0RF Rx Instructions: Apply to painful area as needed every 12 hours. albuterol sulfate [Ventolin HFA] 90 MCG/PUFF HFA aerosol inhaler 2 puff INH PRN PRN (Reason: Adequate Ventilation) Qty: 0 fluticasone furoate-vilanterol [Breo Ellipta] 100 MCG/25 MCG blister with device 1 puff INH DAILY Qty: 0 levothyroxine 100 MCG tablet 150 mcg PO QAM Qty: 0 aspirin 81 MG tablet,delayed release (DR/EC) 81 mg PO QDAY Qty: 0 Claritin-D 12 Hour 5-120 mg tablet extended release 12 hr 1 tab PO ONCE Referrals: Abebe Bonner DO [Primary Care Provider] -
[2022-05-01 12:06] LABS: Add Manual Diff / Slide Review NO; Basophils Absolute Auto 100 /uL (0-100); Basophils Percent Auto 1.1 % (0-2); Eosinophils Absolute Auto 100 /uL (0-450); Eosinophils Percent Auto 1.5 % (2-4); Hematocrit 39.6 % (41-53); Lymphocytes Absolute Auto 600 /uL (1100-4500); Lymphocytes Percent Auto 8.4 % (25-40); Mean Corpuscular HGB Conc 32.9 % (30-36); Mean Corpuscular Hemoglobin 26.4 PG (26-34); Mean Corpuscular Volume 80.3 fL (80-100); Monocytes Absolute Auto 900 /uL (0-900); Monocytes Percent Auto 12.8 % (3-14); Neutrophils Absolute Auto 5600 /uL (1500-7000); Neutrophils Percent Auto 76.2 % (50-75); Platelet Count 219 X10^3/uL (150-400); Red Blood Cell Count 4.93 X10^6/uL (4.5-5.9); Red Cell Distribution Width 19.8 % (11.6-14.8); White Blood Cell Count 7.3 X10^3/uL (4.5-11.0)
[2022-05-01 12:07] LABS: INR 1.4 (0.9-1.3); Prothrombin Time 15.9 SECONDS (10.1-12.7)
[2022-05-01 12:10] LABS: HEMOLYSIS < 15 (0-50); PTT Partial Thromboplastin Tim 34 SECONDS (26-36)
[2022-05-01 12:27] LABS: Troponin I 0.056 ng/mL (0.01-0.034)
[2022-05-01 12:53] LABS: Alanine Aminotransferase 22 IU/L (<50); Albumin 4.5 g/dL (3.5-5.0); Albumin Globulin Ratio 1.1 (1.0-2.8); Alkaline Phosphatase 160 U/L (38-126); Aspartate Aminotransferase 31 IU/L (17-59); BUN Creatinine Ratio 21.9 (6-22); Bilirubin Total 1.7 mg/dL (0.2-1.3); Blood Urea Nitrogen 53 mg/dL (9-20); Carbon Dioxide 21 mmol/L (22-32); Chloride 92 mmol/L (98-107); Creatine Kinase 93 U/L (55-170); Estimated Glomerular Filt Rate 27 mL/min (>60); Globulin 4.1 g/dL (1.7-4.1); Glucose 120 mg/dL (80-110); Lipase 119 U/L (23-300); Magnesium 2.2 mg/dL (1.6-2.3); Potassium 4.7 mmol/L (3.4-5.1); Sodium 128 mmol/L (137-145); Total Protein 8.6 g/dL (6.3-8.2)
[2022-05-01 13:08] LABS: NT-proBNP (BNP-Adult 18+) 11300 pg/mL (<450)
[2022-05-01 13:55] LABS: Influenza A - CEPHEID Flu A NEGATIVE (NEGATIVE); Influenza B - CEPHEID Flu B NEGATIVE (NEGATIVE); Respiratory Syncytial Virus Negative (Negative)
[2022-05-01 14:42] LABS: COVID-19 CEPHEID 4-PLEX PCR Negative (Negative)
== END 2022-05-01 15:23 | disposition home or self-care (01) ==
PROVIDERS: Emergency Provider Emergency Medicine; Family Provider Family Medicine; PCP Family Medicine
DX: R07.9 Chest pain, unspecified (principal); I50.9 Heart failure, unspecified; R05.9 Cough, unspecified; R11.10 Vomiting, unspecified; Z79.01 Long term (current) use of anticoagulants; Z79.899 Other long term (current) drug therapy; Z20.822 Contact with and (suspected) exposure to COVID-19
CPT/HCPCS: 0241U; 36415; 71045; 80053; 82550; 83690; 83735; 83880; 84484; 85025; 85610; 85730; 93005; 99284

== ENCOUNTER → 2022-07-20 13:22 | Outpatient (CLI) | payer OTHER, SELFPAY ==
--- NOTE | 2022-07-20 | DI.US.S_ITS ---
PROCEDURE: US RENAL COMPLETE INDICATIONS: Chronic kidney disease, kidney failure TECHNIQUE: Real-time scanning was performed of the kidneys and bladder, with image documentation. COMPARISON: None. FINDINGS: Kidneys: Kidneys are normal in size. Right kidney measures 12.1 cm long; left kidney measures 8.9 cm long. Right renal cortical thickness is 1.5 cm; left renal cortical thickness is 1.4 cm. Renal cortical echotexture is normal. No hydronephrosis or nephrolithiasis. No suspicious solid mass lesions. Bilateral renal cysts. Bladder: Pre-void bladder volume is 591 mL. Post-void residual is 499 mL. Pre-void images demonstrate no intraluminal masses or stones. On pre-void images, neither the right nor left ureteral jets are noted with color Doppler interrogation. (Of note, ureteral jets may not be detectable in up to 25% of cases due to insufficient differences in specific gravity between ureteral and bladder urine). Miscellaneous: No free pelvic fluid. IMPRESSION: No hydronephrosis. Mild left renal atrophy. Bilateral renal cysts. Large postvoid residual urinary bladder volume. Dictated by: Grazyna Aguirre MD, PhD on 07/20/2022 at 14:18 Approved by: Grazyna Aguirre MD, PhD on 07/20/2022 at 14:22
== END ==
PROVIDERS: Family Provider Family Medicine; PCP Family Medicine; Referring Provider Internal Medicine Nephrology; Visit Provider Internal Medicine Nephrology
DX: N17.9 Acute kidney failure, unspecified (principal); N18.9 Chronic kidney disease, unspecified; N28.1 Cyst of kidney, acquired; N26.1 Atrophy of kidney (terminal)
CPT/HCPCS: 76770